=== PATIENT | female | born 1960 | race Caucasian/White ===

== ENCOUNTER 2018-04-10 16:36 | Day surgery (SDC) | payer BC ==
--- NOTE | 2018-04-10 13:08 | P.GSHP ---
History of Present Illness H&P Date: 04/10/18 Chief Complaint: Dysphagia, gastric prolapse This 57-year-old female who has LAP-BAND surgery performed prior 15 years ago. Patient is not been seen for over 5 years. Patient's had a one-month history of progressive dysphagia. Patient presents for bariatric clinic today because she had trouble tolerating water. Her LAP-BAND was empty. Her esophagram shows high-grade obstruction of the lap band site suggestive gastric prolapse. Patient admitted to the hospital for removal of LAP-BAND. Patient's aware the risks of surgery including conversion O procedure and injury to the stomach liver or spleen. She also aware the risk of gastric perforation. Past Medical History Past Medical History: GERD/Reflux, Hypertension History of Any Multi-Drug Resistant Organisms: None Reported Past Surgical History: Adenoidectomy, Bariatric Surgery, Breast Surgery, Tonsillectomy Additional Past Surgical History / Comment(s): hx of breastcancer double mastectomy 2004 panniculectomy lap band 2002 Past Anesthesia/Blood Transfusion Reactions: No Reported Reaction Past Psychological History: No Psychological Hx Reported Smoking Status: Current some day smoker Past Alcohol Use History: None Reported Past Drug Use History: None Reported Medications and Allergies Home Medications Medication Instructions Recorded Confirmed Type Losartan-Hctz 50-12.5 mg [Hyzaar 1 tab PO DAILY 04/10/18 04/10/18 History 50-12.5] Omeprazole 20 mg PO DAILY 04/10/18 04/10/18 History Ondansetron [Zofran] 4 mg PO DIRECTED 04/10/18 04/10/18 History Varenicline [Chantix Continuing 1 mg PO DIRECTED 04/10/18 04/10/18 History Pack] Allergies Allergy/AdvReac Type Severity Reaction Status Date / Time No Known Allergies Allergy Verified 04/10/18 10:24 Surgical - Exam - General well developed, well nourished, moderate distress - Eyes PERRL - ENT normal pinna - Neck no masses - Respiratory normal expansion - Cardiovascular Rhythm: regular - Abdomen Mild epigastric tenderness Abdomen: soft Assessment and Plan Assessment: Acute gastric obstruction secondary to gastric prolapse. Patient will undergo removal of LAP-BAND
--- NOTE | 2018-04-10 16:12 | P.OP ---
Date of Procedure: 04/10/18 Preoperative Diagnosis: Gastric prolapse Dysphagia Postoperative Diagnosis: Gastric prolapse Dysphagia Procedure(s) Performed: Laparoscopic lysis of adhesions Labs Removal of LAP-BAND system Anesthesia: DIDIER Surgeon: Rogerio Connors Estimated Blood Loss (ml): 5 Pathology: other (LAP-BAND device) Condition: stable Disposition: PACU Description of Procedure: The patient's placed on the operative table in the supine position. She received general anesthesia. She was then placed in dorsal 5 position. Her abdomen was prepped and draped in the usual sterile fashion. The skin incision sites were anesthetized 1% local Xylocaine. Using a 11 blade the skin was incised the port site. Using blunt and sharp dissection with cautery the LAP- BAND port was dissected free from subcutaneous tissues. The PEG tube was then cut LAP-BAND port was removed. Next using a 5 mm optical trocar under direct visualization panel cavity is entered and then the abdomen was insufflated. Next a 5 mm trochars placed in the left upper quadrant an 8 mm trocar was placed in the left epigastric area and then 5 mm trocar is placed in the right lateral and left lateral position. The original 5 mm trocar was exchanged for a 15 mm. The left lateral lobe liver retracted. The LAP-BAND was visualized. There is evidence of a gastric prolapse. There was a large gastric pouch. The adhesions Herberth device were then cut using sharp dissection. The LAP-BAND device was then cut Buckle withdrawn from around stomach. There is no injury to the stomach or esophagus. The LAP-BAND device extracted through the 15 mm trocar site. There were some adhesions to the omentum and these were sharply dissected off the abdominal wall. The trochars withdrawn. The skin was closed interrupted 3-0 Monocryl suture. Dermabond was applied. Patient top she will was sent to recovery in stable condition.
[~2018-04-10 16:36] MED LIST changes: +BUPIVACAIN-EPI 0.5%-1:200,000 30 ML VIAL SQ ONE; +GLYCOPYRROLATE 0.2 MG/ML 2 ML VIAL ONE; +HEPARIN SODIUM,PORCINE 5,000 UNIT/ML 1 ML VIAL SQ ONE; +HYDROcodone/APAP 5-325MG 1 EACH TAB PO PRN; +HYDROmorphone 1 MG/ML 1 ML SYRINGE IVP PRN; +IV FLUID CONTINUATION 1,000 ML IV ONE; +KETOROLAC 30 MG/ML 1 ML VIAL ONE; +LACTATED RINGERS 1,000 ML IV ONE; -LACTATED RINGERS 1,000 ML IV SCH; +LIDOCAINE 1% INJ 10MG/ML (20 ML MDV) ONE; +MEPERIDINE 50 MG/ML SYRINGE ONE; +MIDAZOLAM 2 MG/2 ML VIAL ONE; +NALOXONE 0.4 MG/ML 1 ML VIAL IV PRN; +NEOSTIGMINE 1 MG/ML 10 ML VIAL ONE; +ONDANSETRON 4 MG/2 ML VIAL IVP PRN; +PROPOFOL 10 MG/ML 20 ML VIAL IV ONE; +ROCURONIUM BROMIDE 10 MG/ML 10 ML VIAL IV ONE; +ceFAZolin 2,000 MG in DEXTROSE/WATER 1 50ML.BAG IVPB STA; +ceFAZolin IN SWFI 2 GM/20 ML SYRINGE IVP STA; +fentaNYL (PF) 50 MCG/ML 2 ML AMP ONE
[2018-04-10 18:12] VITALS: BMI 31.3
[2018-04-10] MEDS: KETOROLAC 30 MG/ML 1 ML VIAL IVP SCH ×2 (20:09→23:36)
[2018-04-11] MEDS: KETOROLAC 30 MG/ML 1 ML VIAL IVP SCH ×2 (05:02→12:47)
[2018-04-11 07:23] VITALS: BP 113/64; PULSE 55; RESP 18; TEMP 98.4
[2018-04-11] MEDS ORDERED: ENOXAPARIN 40 MG/0.4 ML SYRINGE SQ SCH (09:00)
--- NOTE | 2018-04-11 10:25 | FL ---
EXAMINATION TYPE: FL UGI w esophagus DATE OF EXAM: 04/11/2018 COMPARISON: Previous dated 08/22/2010 HISTORY: Status post lap band removal TECHNIQUE: A single/double contrast UGI study is performed. FINDINGS: Limited exam was performed. 39 seconds fluoroscopy time. 6 intraoperative images. Patient was given 50 cc Omnipaque 300 orally. There is no obstruction to flow. No extravasation. Post op changes noted in the upper abdomen. Minimal pneumoperitoneum noted incidentally. IMPRESSION: Post lap band removal. No evident complication.
--- NOTE | 2018-04-11 12:15 | P.DS ---
Providers Expected date of discharge: 04/11/18 Attending physician: Rogerio Connors Consults: 04/10/18 16:04 Consult Physician Routine Consulting Provider: Raffi White Consult Reason/Comments: Medical management Do you want consulting provider notified?: Yes Primary care physician: Geraldine Thakur [facility] Course: This is a 57-year-old female who presented on elective basis to have a lap band to be removed. Patient has a LAP-BAND surgery done about 15 years prior. Patient has not been seen in follow-up for 5 years. Patient gives a history of experiencing for the past month progressive dysphagia. She presented to the bariatric clinic because she was having trouble tolerating water. The LAP-BAND was empty. Esophagram showed high-grade obstruction of the LAP-BAND site suggested of gastric prolapse patient underwent April 10 LAP-BAND system removal with laparoscopic lysis of adhesions for gastric prolapse postop there were no new events patient was tolerating a diet esophagram was negative patient was anxious to be discharged home analgesics effective for pain control surgical dressing sites were dry abdomen soft nondistended. Discharge diagnoses Removal of LAP-BAND system with lysis of adhesions for gastric prolapse LAP-BAND surgery performed 15 years prior One-month history of progressive dysphagia or difficulty swallowing Esophagram showed high-grade obstruction of the LAP-BAND site suggestive of gastric prolapse The above impression and plan of care have been discussed and directed by signing physician. Azul Castanon nurse practitioner acting as scribe for signing physician. Plan - Discharge Summary Discharge Rx Participant: No New Discharge Prescriptions: New HYDROcodone/APAP 5-325MG [Chemult 5-325] 1 each PO Q6HR PRN #12 tab PRN Reason: Moderate To Severe Pain Continue Omeprazole 20 mg PO DAILY Ondansetron [Zofran] 4 mg PO DIRECTED Losartan-Hctz 50-12.5 mg [Hyzaar 50-12.5] 1 tab PO DAILY Varenicline [Chantix Continuing Pack] 1 mg PO DIRECTED Discharge Medication List Losartan-Hctz 50-12.5 mg [Hyzaar 50-12.5] 1 tab PO DAILY 04/10/18 [History] Omeprazole 20 mg PO DAILY 04/10/18 [History] Ondansetron [Zofran] 4 mg PO DIRECTED 04/10/18 [History] Varenicline [Chantix Continuing Pack] 1 mg PO DIRECTED 04/10/18 [History] HYDROcodone/APAP 5-325MG [Chemult 5-325] 1 each PO Q6HR PRN #12 tab 04/11/18 [Rx] Follow up Appointment(s)/Referral(s): Rogerio Connors MD [STAFF PHYSICIAN] - 1 Week Activity/Diet/Wound Care/Special Instructions: No tub bath for six weeks. Shower daily. No lifting over 10 pounds for the next 4 weeks. [id number]-pfvedow stool softeners for constipation if needed May use ice packs to surgical site. No driving while taking narcotic for pain. Discharge Disposition: HOME SELF-CARE
== END 2018-04-11 14:08 | disposition home or self-care (01) ==
LOC: 3SUR 16:36 → OR 16:36
PROVIDERS: ATTEND Surgery
DX: T85.898A Other specified complication of other internal prosthetic devices, implants and grafts, initial encounter (principal); K66.0 Peritoneal adhesions (postprocedural) (postinfection); K21.9 Gastro-esophageal reflux disease without esophagitis; I10 Essential (primary) hypertension; Z90.13 Acquired absence of bilateral breasts and nipples; F17.200 Nicotine dependence, unspecified, uncomplicated; Z79.899 Other long term (current) drug therapy
CPT/HCPCS: 74240; 43774; J1644; J1650; J1885 ×2; J0690; Q9967; 36415; 80053; 85025; 96360

== ENCOUNTER → 2018-04-10 | Outpatient (CLI) | payer BC ==
[2018-04-10 10:29] VITALS: BP 104/69; PULSE 76; TEMP 98.2; BMI 31.8
--- NOTE | 2018-04-10 11:54 | P.BASOAP ---
Subjective Progress Note Date: 04/10/18 Principal diagnosis: Dysphagia, vomiting 49-year-old female had an outpatient upper GI ordered by her primary care physician. Patient has a history of laparoscopic banding in 2006. Over the last 3 weeks she has had progressive dysphasia nausea vomiting and epigastric pain. Pain is only when she eats. Today's upper GI shows significant obstruction with prolapse changes. Patient was seen in the bariatric clinic. Apparently she saw me at the time of her last visit. Her band was emptied for 1 mL. Patient still has dysphagia symptoms. She describes dark-colored urine. She feels quite dehydrated. Objective - Vital Signs Vital signs: Vital Signs Temp 98.2 F 04/10/18 10:26 Pulse 76 04/10/18 10:26 Resp BP 104/69 04/10/18 10:26 Pulse Ox Intake & Output 04/09/18 04/10/18 04/10/18 18:59 06:59 18:59 Weight 92.079 kg - Exam Abdomen: Soft, nontender, nondistended Assessment/Plan (1) Gastric prolapse Narrative/Plan: Options discussed with the patient. Recommend laparoscopic band removal at this time. The patient's lap band port was palpated. The site was aseptically prepped. The Hardy needle was advanced into the port. Aspiration took place. A total of 1ml of fluid was evacuated. Pressure was held and a sterile dressing was applied. Plan: Date: 04/10/18 Initial Weight: Initial BMI: Current Weight: 92.079 kg Current BMI: 31.8 Type of Surgery: Total Volume in Band: Previous Volume: Volume Removed: Volume Added: Band Size:
== END | disposition home or self-care (01) ==
LOC: BARWHC3 09:55
PROVIDERS: ATTEND Surgery
DX: K31.89 Other diseases of stomach and duodenum (principal); R47.02 Dysphasia; Z98.890 Other specified postprocedural states
CPT/HCPCS: 99212

== ENCOUNTER → 2018-04-10 | Outpatient (CLI) | payer BC ==
--- NOTE | 2018-04-10 10:49 | FL ---
EXAMINATION TYPE: FL UGI air w esophagus DATE OF EXAM: 04/10/2018 COMPARISON: 07/07/2010 and 08/22/2010 HISTORY: 57-year-old female GERD, unable to keep food or liquids down for the left 3 weeks. TECHNIQUE: A single contrast esophagram and UGI study is performed. Total fluoroscopy time: 1 minute 19 seconds. Total images: 15. FINDINGS: Surgical Supply Assistant image of the abdomen shows slight horizontal orientation of the patient's lap band, similar to the 07/07/2010 study. This is a change as compared to 08/22/2010. The esophagus shows normal motility. There is a relatively severe obstruction at the level of the patient's lap band. Patient ingested onl y 2 ounces of thin barium. Repeated to and fro flow is demonstrated with a intermittent esophageal di latation and contrast pooling up to the upper third thoracic level. On the 10 minute post procedure radiograph, there has been some passage of contrast into the stomach but a prominent contrast column remains in the esophagus. IMPRESSION: 1. Slight horizontal orientation of the lap band which is a change compared to 08/22/2010. 2. Relatively severe obstruction at the level of the lap band. Given this finding in combination with the altered orientation, findings are suspicious for lap band prolapse. 3. On the 10 minute post procedure radiograph, some contrast has passed into the stomach but a promin ent contrast column remains in the esophagus. Only 2 ounces of contrast were ingested. The technologist will contact the bariatric clinic.
== END | disposition home or self-care (01) ==
LOC: RADFLWHC 08:50
PROVIDERS: ATTEND Internal Medicine
DX: K21.9 Gastro-esophageal reflux disease without esophagitis (principal)
CPT/HCPCS: 74246

== ENCOUNTER → 2018-04-10 | Outpatient (CLI) | payer BC ==
[~2018-04-10] MED LIST: LACTATED RINGERS 1,000 ML IV SCH
[2018-04-10 13:05] LABS: Basophils % (A) 1 %; Eosinophils # (A) 0.2 k/uL (0-0.7); Eosinophils % (A) 3 %; HCT 43.7 % (34.0-46.0); HGB 14.3 gm/dL (11.4-16.0); Lymphocytes # (A) 1.9 k/uL (1.0-4.8); Lymphocytes % (A) 35 %; MCH 31.7 pg (25.0-35.0); MCHC 32.8 g/dL (31.0-37.0); MCV 96.7 fL (80.0-100.0); Monocytes # (A) 0.3 k/uL (0-1.0); Monocytes % (A) 5 %; Neutrophils % (A) 54 %; Platelet Count 286 k/uL (150-450); RBC 4.52 m/uL (3.80-5.40); RDW 13.6 % (11.5-15.5); WBC 5.5 k/uL (3.8-10.6)
[2018-04-10 13:16] LABS: Albumin 4.3 g/dL (3.5-5.0); Calcium 10.3 mg/dL (8.4-10.2); Potassium 3.9 mmol/L (3.5-5.1); Total Bilirubin 0.3 mg/dL (0.2-1.3); Total Protein 7.3 g/dL (6.3-8.2)
[2018-04-10 13:22] VITALS: BP 104/69; PULSE 76; RESP 16; TEMP 98.2
== END ==
LOC: PROCWHC3 12:17
PROVIDERS: ATTEND Surgery
DX: E86.0 Dehydration (principal)
CPT/HCPCS: 36415; 80053; 85025; 96360

== ENCOUNTER → 2018-04-15 | Outpatient (CLI) | payer BC ==
[2018-04-15 14:11] VITALS: BP 142/99; PULSE 73; RESP 16; TEMP 98.5; BMI 33.5
--- NOTE | 2018-04-16 12:28 | P.HPBAR ---
Bariatric H&P - History & Physicial H&P Date: 04/15/18 History & Physicial: Visit/CC: removal of lap band follow-up Patient initial contact: Initial weight: 92.079 kg Initial weight in pounds: 203.00 Height: 5 ft 7 in Initial BMI: 31.8 Last weight: Current weight: 97.069 kg Current weight in pounds: 214.00 Current BMI: 33.5 [place] body weight (based on NIH guidelines): 61.235 kg Excess body weight loss: The patient is a 57 year-old F who presents for Bariatric Assessment. Patient presents today for follow-up. She had her LAP-BAND removed last week. She has had no further dysphagia. She has gained 12 pounds since her band was removed. Past Medical History Past Medical History: GERD/Reflux, Hypertension History of Any Multi-Drug Resistant Organisms: None Reported Past Surgical History: Adenoidectomy, Bariatric Surgery, Breast Surgery, Tonsillectomy Additional Past Surgical History / Comment(s): hx of breastcancer double mastectomy 2003 panniculectomy lap band 2002-(band removed 04/10/18) Past Anesthesia/Blood Transfusion Reactions: No Reported Reaction Past Psychological History: No Psychological Hx Reported Smoking Status: Current every day smoker Past Alcohol Use History: None Reported Past Drug Use History: None Reported Surgical - Exam Vital Signs Temp Pulse Resp BP 98.5 F 73 16 142/99 04/15/18 14:09 04/15/18 14:09 04/15/18 14:09 04/15/18 14:09 - General well developed, well nourished, no distress - Eyes PERRL - ENT normal pinna - Neck no masses - Respiratory normal expansion - Cardiovascular Rhythm: regular - Abdomen Abdomen: soft, non tender Bariatric Assessment & Plan Plan: Status post removal LAP-BAND. Patient's dysphagia has resolved. She'll follow- up in 8 weeks. Bariatric Checklist Checklist: Plan: Checklist: EGD: 1. Hiatal hernia: 2. H. Pylori: HgbA1c: Vitamin D: Smoking: Current every day smoker Primary care physician referral: DR. LEBDETTER Psychiatry clearance: Cardiology clearance: Sleep study: Diet journal: VTE risk score: VTE risk level: Rehab needs at discharge:
== END | disposition home or self-care (01) ==
LOC: BARWHC3 13:44
PROVIDERS: ATTEND Surgery
DX: Z48.815 Encounter for surgical aftercare following surgery on the digestive system (principal); F17.200 Nicotine dependence, unspecified, uncomplicated; Z98.84 Bariatric surgery status; Z90.89 Acquired absence of other organs
CPT/HCPCS: 99211

== ENCOUNTER 2018-06-07 08:26 | Day surgery (SDC) | payer BC ==
[2018-06-05 16:37] VITALS: BMI 32.8
[~2018-06-07 08:26] MED LIST changes: -BUPIVACAIN-EPI 0.5%-1:200,000 30 ML VIAL SQ ONE; -GLYCOPYRROLATE 0.2 MG/ML 2 ML VIAL ONE; -HEPARIN SODIUM,PORCINE 5,000 UNIT/ML 1 ML VIAL SQ ONE; -HYDROcodone/APAP 5-325MG 1 EACH TAB PO PRN; -HYDROmorphone 1 MG/ML 1 ML SYRINGE IVP PRN; -IV FLUID CONTINUATION 1,000 ML IV ONE; -KETOROLAC 30 MG/ML 1 ML VIAL ONE; -LACTATED RINGERS 1,000 ML IV ONE; +LACTATED RINGERS 1,000 ML IV SCH; -LIDOCAINE 1% INJ 10MG/ML (20 ML MDV) ONE; -MEPERIDINE 50 MG/ML SYRINGE ONE; -MIDAZOLAM 2 MG/2 ML VIAL ONE; -NALOXONE 0.4 MG/ML 1 ML VIAL IV PRN; -NEOSTIGMINE 1 MG/ML 10 ML VIAL ONE; -ONDANSETRON 4 MG/2 ML VIAL IVP PRN; -PROPOFOL 10 MG/ML 20 ML VIAL IV ONE; -ROCURONIUM BROMIDE 10 MG/ML 10 ML VIAL IV ONE; -ceFAZolin 2,000 MG in DEXTROSE/WATER 1 50ML.BAG IVPB STA; -ceFAZolin IN SWFI 2 GM/20 ML SYRINGE IVP STA; -fentaNYL (PF) 50 MCG/ML 2 ML AMP ONE
[2018-06-07 09:00] VITALS: RESP 16; TEMP 98.1
[2018-06-07] MEDS ORDERED: PROPOFOL 10 MG/ML 20 ML VIAL IV ONE (09:58)
[2018-06-07] MEDS ORDERED: LIDOCAINE 1% INJ 10MG/ML (20 ML MDV) ONE (09:58)
--- NOTE | 2018-06-07 10:17 | P.GSHP ---
History of Present Illness H&P Date: 06/07/18 Chief Complaint: Dysphagia This a 49-year-old female who's has some issues with dysphagia. Patient appears history of LAP-BAND surgery and then removal of LAP-BAND. Past Medical History Past Medical History: Cancer, GERD/Reflux, Hypertension, Osteoarthritis (OA) Additional Past Medical History / Comment(s): ENVIRONMENTAL ALLERGIES, HX BRONCHITIS, BREAST CANCER WITH SURGERY & CHEMO (2003).,ARTHRITIS WITH BACK & KNEE PAIN., HX OF LAP BAND (2002) ,GASTRIC PROLAPSE AND BAND REMOVED 04/10/18., HX OF GERD WHICH RESOLVED WHEN LAP BAND WAS REMOVED. History of Any Multi-Drug Resistant Organisms: None Reported Past Surgical History: Adenoidectomy, Bariatric Surgery, Breast Surgery, Tonsillectomy Additional Past Surgical History / Comment(s): hx of breast cancer double mastectomy (2003) , breast reconstruction surgeries., panniculectomy., Cyst on hand removed., lap band 2002-(band removed 04/10/18) Past Anesthesia/Blood Transfusion Reactions: No Reported Reaction Past Psychological History: No Psychological Hx Reported Smoking Status: Heavy tobacco smoker Past Alcohol Use History: Occasional Additional Past Alcohol Use History / Comment(s): SMOKES 1 PPD OR LESS, SMOKING OFF AND ON, SMOKED APPROX 30 YEARS. Past Drug Use History: None Reported - Past Family History Father Family Medical History: Diabetes Mellitus Medications and Allergies Home Medications Medication Instructions Recorded Confirmed Type Varenicline [Chantix Continuing 1 mg PO DIRECTED 04/10/18 06/07/18 History Pack] Acetaminophen [Tylenol Extra 1,000 mg PO DAILY PRN 06/05/18 06/07/18 History Strength] Guaifen/Phenyleph/Acetaminophn 1 each PO DAILY PRN 06/05/18 06/07/18 History [Tylenol Sinus Severe Caplet] Metoprolol Wright/Hydrochlorothiaz 1 each PO DIRECTED 06/05/18 06/07/18 History [Dutoprol 50-12.5 mg Tablet] Allergies Allergy/AdvReac Type Severity Reaction Status Date / Time No Known Allergies Allergy Verified 06/05/18 15:49 Surgical - Exam Vital Signs Temp Pulse Resp BP Pulse Ox 98.1 F 84 16 140/86 98 06/07/18 08:59 06/07/18 08:59 06/07/18 08:59 06/07/18 08:59 06/07/18 08:59 - General well developed, no distress - Eyes PERRL - ENT normal pinna - Neck no masses - Respiratory normal expansion - Cardiovascular Rhythm: regular - Abdomen Abdomen: soft, non tender Assessment and Plan Assessment: Dysphagia. We'll perform EGD.
--- NOTE | 2018-06-07 10:30 | P.OP ---
Date of Procedure: 06/07/18 Preoperative Diagnosis: Dysphagia Postoperative Diagnosis: Antral gastritis Procedure(s) Performed: EGD Anesthesia: MAC Surgeon: Jeremy Castellano Pathology: other (Antrum) Condition: stable Disposition: PACU Description of Procedure: The patient's placed on the endoscopy table in the lateral position. She received IV sedation. The gastroscope placed oropharynx and passed in the esophagus and into the stomach. Scope was then placed through the pylorus. The first and second portion of the duodenum appeared normal. Scope was then brought back the antrum and this appeared moderately inflamed. A biopsies performed. The scope was then brought back into the body of stomach this appeared normal. Scope was unretroflexed and remainder the stomach appeared normal. The GE junction was at 40 centimeters. The distal esophagus appeared normal. Scope was withdrawn for patient.
[2018-06-07 10:53] VITALS: BP 156/98; PULSE 81
== END 2018-06-07 11:05 | disposition home or self-care (01) ==
LOC: ORWHC2ENDO 08:26
PROVIDERS: ATTEND Surgery
DX: K29.70 Gastritis, unspecified, without bleeding (principal); K29.80 Duodenitis without bleeding; I10 Essential (primary) hypertension; M19.90 Unspecified osteoarthritis, unspecified site; M54.9 Dorsalgia, unspecified; M25.569 Pain in unspecified knee; K21.9 Gastro-esophageal reflux disease without esophagitis; F17.210 Nicotine dependence, cigarettes, uncomplicated; Z79.899 Other long term (current) drug therapy; Z85.3 Personal history of malignant neoplasm of breast; Z92.21 Personal history of antineoplastic chemotherapy; Z90.13 Acquired absence of bilateral breasts and nipples
CPT/HCPCS: 88305; 43239; J2001; J2704

== ENCOUNTER → 2018-06-10 | Outpatient (CLI) | payer BC ==
[2018-06-10 10:00] VITALS: BMI 33.1
[2018-06-10 13:33] VITALS: BP 146/78; PULSE 87; TEMP 98.4
== END | disposition home or self-care (01) ==
LOC: BARWHC3 08:52
PROVIDERS: ATTEND Surgery
DX: E66.01 Morbid (severe) obesity due to excess calories (principal)
CPT/HCPCS: 97804; 99211

== ENCOUNTER → 2018-06-10 | Outpatient (CLI) | payer BC ==
--- NOTE | 2018-06-10 14:10 | P.HPBAR ---
Bariatric H&P - History & Physicial H&P Date: 06/10/18 History & Physicial: Visit/CC: Patient initial contact: Initial weight: 92.079 kg Initial weight in pounds: Height: Initial BMI: Last weight: Current weight: Current weight in pounds: Current BMI: [place] body weight (based on NIH guidelines): Excess body weight loss: The patient is a 57 year-old F who presents for Bariatric Assessment. Patient presents today for its sleeve gastrectomy presurgical consultation. She fairly scheduled for surgery sometime this month. We will over the risks and benefits of sleeve gastrectomy again. Past Medical History Past Medical History: Cancer, GERD/Reflux, Hypertension, Osteoarthritis (OA) Additional Past Medical History / Comment(s): ENVIRONMENTAL ALLERGIES, HX BRONCHITIS, BREAST CANCER WITH SURGERY & CHEMO (2003).,ARTHRITIS WITH BACK & KNEE PAIN., HX OF LAP BAND (2002) ,GASTRIC PROLAPSE AND BAND REMOVED 04/10/18., HX OF GERD WHICH RESOLVED WHEN LAP BAND WAS REMOVED. History of Any Multi-Drug Resistant Organisms: None Reported Past Surgical History: Adenoidectomy, Bariatric Surgery, Breast Surgery, Tonsillectomy Additional Past Surgical History / Comment(s): hx of breast cancer double mastectomy (2003) , breast reconstruction surgeries., panniculectomy., Cyst on hand removed., lap band 2002-(band removed 04/10/18) Past Anesthesia/Blood Transfusion Reactions: No Reported Reaction Smoking Status: Heavy tobacco smoker - Past Family History Father Family Medical History: Diabetes Mellitus Surgical - Exam - General well developed, no distress - Eyes PERRL - ENT normal pinna, normal nares - Neck no masses - Abdomen Abdomen: soft, non tender Bariatric Assessment & Plan Plan: History of previous LAP-BAND surgery. Patient's had weight gain. Patient be scheduled for sleeve gastrectomy once insurance authorization is complete. Bariatric Checklist Checklist: Plan: Checklist: EGD: 1. Hiatal hernia: 2. H. Pylori: HgbA1c: Vitamin D: Smoking: Heavy tobacco smoker Primary care physician referral: DR. LEDBETTER Psychiatry clearance: Cardiology clearance: Sleep study: Diet journal: VTE risk score: VTE risk level: Rehab needs at discharge:
[2018-06-10 14:32] LABS: Basophils % (A) 1 %; Eosinophils # (A) 0.3 k/uL (0-0.7); Eosinophils % (A) 4 %; HCT 47.3 % (34.0-46.0); HGB 15.1 gm/dL (11.4-16.0); Lymphocytes # (A) 2.5 k/uL (1.0-4.8); Lymphocytes % (A) 34 %; MCH 31.5 pg (25.0-35.0); MCHC 31.9 g/dL (31.0-37.0); MCV 98.8 fL (80.0-100.0); Mean Platelet Volume 6.4; Monocytes # (A) 0.4 k/uL (0-1.0); Monocytes % (A) 6 %; Neutrophils % (A) 54 %; Platelet Count 289 k/uL (150-450); RBC 4.79 m/uL (3.80-5.40); RDW 14.8 % (11.5-15.5); WBC 7.4 k/uL (3.8-10.6)
[2018-06-10 14:42] LABS: ALT 18 U/L (9-52); AST 21 U/L (14-36); Albumin 4.2 g/dL (3.5-5.0); Alkaline Phosphatase 69 U/L (38-126); Anion Gap 9 mmol/L; Blood Urea Nitrogen 15 mg/dL (7-17); Calcium 9.9 mg/dL (8.4-10.2); Carbon Dioxide 25 mmol/L (22-30); Chloride 107 mmol/L (98-107); Glucose 96 mg/dL (74-99); Potassium 3.9 mmol/L (3.5-5.1); Sodium 141 mmol/L (137-145); Total Bilirubin 0.4 mg/dL (0.2-1.3); Total Protein 7.6 g/dL (6.3-8.2)
== END | disposition home or self-care (01) ==
LOC: LABPAT 13:46
PROVIDERS: ATTEND Surgery
DX: Z01.812 Encounter for preprocedural laboratory examination (principal)
CPT/HCPCS: 36415; 80053; 85025; 93005

== ENCOUNTER 2018-06-24 06:32 | Inpatient (IN) | payer BC ==
[2018-06-21 11:42] VITALS: BMI 32.8
[~2018-06-24 06:32] MED LIST changes: +DEXAMETHASONE SOD PHOSPHATE 10 MG/ML 1 ML VIAL IV ONE; -LACTATED RINGERS 1,000 ML IV SCH; +MIDAZOLAM (PF) 2 MG/2 ML VIAL IV PRN; +ONDANSETRON 4 MG/2 ML VIAL IVP ONE; +SCOPOLAMINE 1.5MG/72HR PATCH TRANSDERM ONE; +ceFAZolin IN SWFI 2 GM/20 ML SYRINGE IVP ONE
[2018-06-24] MEDS ORDERED: LACTATED RINGERS 1,000 ML IV ONE ×2 (07:08→09:11)
[2018-06-24] MEDS ORDERED: LIDOCAINE 1% 20 ML VIAL (10MG/ML) FOR IV START INTRADERMA ONE (07:09)
[2018-06-24] MEDS ORDERED: HEPARIN SODIUM,PORCINE 5,000 UNIT/ML 1 ML VIAL SQ ONE (08:26)
--- NOTE | 2018-06-24 08:30 | P.GSHP ---
History of Present Illness H&P Date: 06/24/18 Chief Complaint: Morbid obesity This a 57-year-old female who presents today for laparoscopic sleeve gastrectomy. Patient has a history of morbid obesity. She had a previous prolapse of her LAP-BAND. The band was removed due to the prolapse. Patient had significant weight gain after the band was removed. She presents today for sleeve gastrectomy. Patient's aware the risk of sleeve gastric including bleeding, conversion to the open procedure and injury to the stomach liver spleen. Past Medical History Past Medical History: Cancer, GERD/Reflux, Hypertension, Osteoarthritis (OA) Additional Past Medical History / Comment(s): HX BRONCHITIS, BREAST CANCER WITH SURGERY & CHEMO (2003).,ARTHRITIS WITH BACK & KNEE PAIN., GASTRIC PROLAPSE AND BAND REMOVED 04/10/18., History of Any Multi-Drug Resistant Organisms: None Reported Past Surgical History: Adenoidectomy, Bariatric Surgery, Breast Surgery, Orthopedic Surgery, Tonsillectomy Additional Past Surgical History / Comment(s): carissa mastectomy (2003) , carissa breast reconstruction., panniculectomy., Cyst on rt hand removed., lap band 2002-(band removed 04/10/18), EGD Past Anesthesia/Blood Transfusion Reactions: Family History of Problems w/ Anesthesia Additional Past Anesthesia/Blood Transfusion Reaction / Comment(s): sister PONV Smoking Status: Current every day smoker - Past Family History Father Family Medical History: Diabetes Mellitus Mother Family Medical History: No Reported History Medications and Allergies Home Medications Medication Instructions Recorded Confirmed Type Acetaminophen [Tylenol Extra 1,000 mg PO DAILY PRN 06/05/18 06/21/18 History Strength] Guaifen/Phenyleph/Acetaminophn 1 each PO DAILY PRN 06/05/18 06/21/18 History [Tylenol Sinus Severe Caplet] Metoprolol Wright/Hydrochlorothiaz 1 each PO QAM 06/05/18 06/21/18 History [Dutoprol 50-12.5 mg Tablet] Omeprazole 40 mg PO DAILY #60 capsule. 06/07/18 06/21/18 Rx Allergies Allergy/AdvReac Type Severity Reaction Status Date / Time No Known Allergies Allergy Verified 06/21/18 11:33 Surgical - Exam Vital Signs Temp Pulse Resp BP Pulse Ox 97.8 F 87 18 131/84 98 06/24/18 06:56 06/24/18 06:56 06/24/18 06:56 06/24/18 06:56 06/24/18 06:56 - General well developed, well nourished, no distress - Eyes PERRL - ENT normal pinna - Neck no masses - Respiratory normal expansion - Cardiovascular Rhythm: regular - Abdomen Abdomen: soft, non tender Assessment and Plan Assessment: History of gastric prolapse with removal LAP-BAND We'll perform laparoscopic sleeve gastrectomy
[2018-06-24] MEDS ORDERED: BUPIVACAIN-EPI 0.25%-1:200,000 30 ML VIAL SQ ONE ×2 (08:32→09:05)
[2018-06-24] MEDS ORDERED: LIDOCAINE 1% INJ 10MG/ML (20 ML MDV) ONE (08:36)
[2018-06-24] MEDS ORDERED: GLYCOPYRROLATE 0.2 MG/ML 2 ML VIAL ONE (08:36)
[2018-06-24] MEDS ORDERED: SUCCINYLCHOLINE CHLORIDE 100 MG/5 ML SYR IV ONE (08:36)
[2018-06-24] MEDS ORDERED: MIDAZOLAM 2 MG/2 ML VIAL ONE (08:36)
[2018-06-24] MEDS ORDERED: HYDROmorphone (PF) 1 MG/ML ONE (08:36)
[2018-06-24] MEDS ORDERED: fentaNYL (PF) 50 MCG/ML 2 ML AMP ONE (08:36)
[2018-06-24] MEDS ORDERED: PROPOFOL 10 MG/ML 20 ML VIAL IV ONE (08:36)
[2018-06-24] MEDS ORDERED: NEOSTIGMINE 1 MG/ML 10 ML VIAL ONE (08:36)
[2018-06-24] MEDS ORDERED: ROCURONIUM BROMIDE 10 MG/ML 10 ML VIAL IV ONE (08:36)
[2018-06-24] MEDS ORDERED: ONDANSETRON 4 MG/2 ML VIAL IVP PRN (10:34)
[2018-06-24] MEDS ORDERED: HYDROcodone/APAP 15 ML SOLUTION PO PRN (10:34)
[2018-06-24] MEDS ORDERED: diphenhydrAMINE 50 MG/ML 1 ML VIAL IVP PRN (10:34)
[2018-06-24] MEDS ORDERED: NALOXONE 0.4 MG/ML 1 ML VIAL IV PRN (10:34)
[2018-06-24] MEDS ORDERED: ONDANSETRON 4 MG/2 ML VIAL IVP ONE (10:35)
--- NOTE | 2018-06-24 10:39 | P.OP ---
Date of Procedure: 06/24/18 Preoperative Diagnosis: History of gastric prolapse Morbid obesity Postoperative Diagnosis: History of gastric prolapse Morbid obesity Procedure(s) Performed: Laparoscopic sleeve gastrectomy Lysis of adhesions Anesthesia: DIDIER Surgeon: Rogerio Connors Estimated Blood Loss (ml): 20 Pathology: none sent Condition: stable Disposition: PACU Description of Procedure: The patient was placed on the operating room table in the supine position. She received general anesthesia and then was placed in dorsal lithotomy position. Her abdomen was prepped and draped in sterile fashion. The skin incision sites were anesthetized 1% local Xylocaine. And then the skin was incised with an 11 blade in the left lateral position. Using a blade less trocar under direct visualization the peritoneal cavity was entered. The abdomen was insufflated and then a 5 mm laparoscope was placed into the peritoneal cavity. A 5 mm trocar was placed in the right epigastric, and right lateral position. A 15 mm trocar was placed in the supra-umbilical position and another 5 mm trocar was placed in the left lateral position. The left lateral lobe of the liver was retracted. The stomach was visualized. There were adhesions to the stomach which were lysed with sharp dissection. Prostate 15 minutes was used to lyse adhesions. The previous anterior gastric plication for the LAP-BAND was taken down sharp dissection. Care was taken to identify and preserve the gastric wall. The greater curvature of the stomach was then dissected using the Harmonic scissors. The dissection occurred approximately 5 cm from the pylorus to the level of the left jesus. There was no hiatal hernia seen. At this point a 40- Malay bougie dilator was placed the oropharynx and passed into the esophagus and into the stomach by the FRONT OFFICE ADMINISTRATOR. The sleeve gastrectomy was performed by using the powered echelon stapler with a seam guard buttress material. Sequential firings of the stapler were performed. The gastric remnant was then brought out through the 15 mm trocar site. The dilator was withdrawn. And a orogastric tube was replaced into the stomach. The stomach was insufflated with 200 mL of methylene blue normal saline. There was no evidence of extravasation. The abdomen was irrigated there is no bleeding seen. The Angus -Liyah device was used to close the 15 mm trocar with 0 Vicryl. Skin was closed with interrupted 3-0 Monocryl sutures once the trochars withdrawn. Dermabond dressing was applied. Patient was sent to recovery in stable condition.
[2018-06-24] MEDS: HYDROmorphone 1 MG/ML 1 ML SYRINGE IVP PRN ×5 (10:44→22:01)
[2018-06-24] MEDS ORDERED: diphenhydrAMINE 50 MG/ML 1 ML VIAL IVP ONE (11:00)
[2018-06-24] MEDS ORDERED: METOCLOPRAMIDE 5 MG/ML 2 ML VIAL IVP ONE (11:13)
[2018-06-24] MEDS: SIMETHICONE 40 MG/0.6 ML DROPS 2,000 MG/30 ML BOTTLE PO PRN ×2 (11:41→17:32)
[2018-06-24] MEDS: 0.9% NACL WITH KCL 20 MEQ/L 1,000 ML IV SCH ×2 (11:43→17:33)
[2018-06-24] MEDS: AMPICILLIN-SULBACTAM 3 GM in SODIUM CHLORIDE 0.9% 100 ML IVPB SCH ×2 (11:45→17:33)
[2018-06-24] MEDS: ALBUTEROL NEBULIZED 2.5 MG/3 ML INHALATION SCH ×3 (12:16→18:55)
[2018-06-24] MEDS: LACTATED RINGERS 1,000 ML IV SCH (15:44)
[2018-06-24] MEDS: KETOROLAC 30 MG/ML 1 ML VIAL IVP SCH ×2 (15:48→17:35)
[2018-06-24] MEDS ORDERED: IPRATROPIUM-ALBUTEROL 3 ML NEB INHALATION PRN (19:20)
[2018-06-24] MEDS: IPRATROPIUM-ALBUTEROL 3 ML NEB INHALATION SCH (19:56)
[2018-06-24 20:21] LABS: ALT 75 U/L (9-52); AST 104 U/L (14-36); Albumin 3.9 g/dL (3.5-5.0); Alkaline Phosphatase 54 U/L (38-126); Anion Gap 8 mmol/L; Blood Urea Nitrogen 17 mg/dL (7-17); Calcium 9.1 mg/dL (8.4-10.2); Carbon Dioxide 25 mmol/L (22-30); Chloride 104 mmol/L (98-107); Glucose 97 mg/dL (74-99); Potassium 4.3 mmol/L (3.5-5.1); Sodium 137 mmol/L (137-145); Total Bilirubin 0.3 mg/dL (0.2-1.3); Total Protein 6.9 g/dL (6.3-8.2)
[2018-06-24] MEDS: ENOXAPARIN 40 MG/0.4 ML SYRINGE SQ SCH (22:01)
[2018-06-24] MEDS: FAMOTIDINE 20 MG TAB PO SCH (22:01)
--- NOTE | 2018-06-24 22:19 | CONS ---
CONSULTATION REASON FOR CONSULTATION: Advice regarding GERD, hypertension and other medical issues requested by Dr. Connors. HISTORY OF PRESENT ILLNESS: This 57-year-old woman with past medical history of GERD, hypertension, DJD, history of bronchitis, history of breast cancer, being followed by Dr. Chandler in the outpatient setting underwent laparoscopic sleeve gastrectomy for gastric prolapse and morbid obesity by Dr. Connors. There is no history of fever, rigors. No history of headache, loss of consciousness or seizures. The patient has some cough at this time. PAST MEDICAL HISTORY: History of GERD, hypertension, DJD, history of bariatric surgery, adenoidectomy. MEDICATIONS: Home medications are reviewed and include: 1. Omeprazole 40 mg daily. 2. Metoprolol. 3. Hydrochlorothiazide 1 tablet p.o. q.a.m. 4. Guaifenesin. 5. Tylenol 1000 mg daily p.r.n. ALLERGIES: None. FAMILY HISTORY: No history of heart disease or strokes in the family. SOCIAL HISTORY: History of smoking. Occasional alcohol intake. REVIEW OF SYSTEMS: ENT: No diminished vision or hearing. CARDIOVASCULAR: As mentioned earlier. RESPIRATORY: As mentioned earlier. GI: As mentioned earlier. : No dysuria. NERVOUS SYSTEM: No numbness or weakness. ALLERGY/IMMUNOLOGY: As mentioned earlier. MUSCULOSKELETAL: As mentioned earlier. HEMATOLOGY/ONCOLOGY: No history of anemia. ENDOCRINE: No history of diabetes or hypothyroidism. CONSTITUTIONAL: As mentioned earlier. DERMATOLOGY: Negative. RHEUMATOLOGY: Negative. PSYCHIATRIC: As mentioned earlier. PHYSICAL EXAMINATION: GENERAL: The patient is alert and oriented times three. VITAL SIGNS: Pulse 98, blood pressure 160/90, respirations 16, temperature is normal. Pulse ox 93% on room air. HEENT: Conjunctivae normal. Oral mucosa moist. NECK is no jugular venous distention. No carotid bruit. No lymph node enlargement. CARDIOVASCULAR: S1, S2 muffled. RESPIRATORY: Breath sounds diminished in the bases. A few scattered rhonchi and crackles. ABDOMEN: Soft, status post surgery. Legs are no edema. CENTRAL NERVOUS SYSTEM: No focal deficits. LABS: CBC, BMP, CMP noted within normal limits. ASSESSMENT: 1. Status post laparoscopic sleeve gastrectomy for gastric collapse and morbid obesity. 2. History of gastroesophageal reflux disease. 3. Hypertension. 4. History of degenerative joint disease. 5. History of bronchitis. 6. History of breast cancer. 7. History of adenoidectomy. 8. History of bariatric surgery. 9. History of nicotine dependence. RECOMMENDATIONS AND DISCUSSION: In this 57-year-old female who presented with multiple complex medical issues, we will monitor the patient closely, continue the current medications, management and symptomatic treatment. We will initiate bronchodilators. I would also recommend bronchodilators and resume the home medications. We will follow the patient closely. DVT prophylaxis. The patient may be asked to follow up with the primary care physician in the outpatient setting. Thank you Dr. Connors for letting us participate in the care of this patient. MMODL / IJN: [id number] /
[2018-06-25] MEDS: KETOROLAC 30 MG/ML 1 ML VIAL IVP SCH ×4 (00:25→17:22)
[2018-06-25] MEDS: 0.9% NACL WITH KCL 20 MEQ/L 1,000 ML IV SCH ×2 (00:59→07:33)
[2018-06-25] MEDS: ENOXAPARIN 40 MG/0.4 ML SYRINGE SQ SCH ×2 (07:34→20:27)
[2018-06-25] MEDS: PANTOPRAZOLE 40 MG/10 ML VIAL IV SCH (07:35)
[2018-06-25] MEDS: FAMOTIDINE 20 MG TAB PO SCH ×2 (07:35→20:27)
[2018-06-25] MEDS: METOPROLOL TARTRATE 50 MG TAB PO SCH (07:35)
[2018-06-25] MEDS: IPRATROPIUM-ALBUTEROL 3 ML NEB INHALATION SCH ×3 (08:36→20:35)
[2018-06-25] MEDS: HYDROmorphone 1 MG/ML 1 ML SYRINGE IVP PRN ×4 (09:17→20:27)
[2018-06-25] MEDS: LACTATED RINGERS 1,000 ML IV SCH (09:39)
--- NOTE | 2018-06-25 10:01 | FL ---
EXAMINATION TYPE: FL UGI DATE OF EXAM: 06/25/2018 LIMITED UGI: CLINICAL HISTORY: Previously prolapsed lap band, surgically removed with gastric sleeve performed ye sterday. TECHNIQUE: Postoperative upper GI is performed utilizing 30 oz of Isovue-370. A total of 1 minute and 48 seconds of fluoroscopic time was utilized during procedure with 22 images saved. COMPARISON: None. FINDINGS: The patient swallowed contrast without difficulty or delay. Esophageal peristalsis and mo tility are delayed distally. There is moderate to severe delayed flow of contrast along the diaphrag matic hiatus into proximal stomach and subsequent flow into gastric sleeve. There is moderate to yazan re delayed flow from distal sleeve into pylorus and duodenal sweep. Patient remains asymptomatic. The re is no evidence of contrast extravasation to suggest leak. IMPRESSION: No evidence of postoperative leak status post recent gastric sleeve surgery. There is a m oderate to severe delay of contrast propulsion from the distal esophagus through the gastroesophageal junction and gastric sleeve with eventual passage.
[2018-06-25 11:02] LABS: Magnesium 1.9 mg/dL (1.6-2.3); Potassium 4.1 mmol/L (3.5-5.1)
[2018-06-25 11:13] LABS: Basophils % (A) 0 %; Eosinophils # (A) 0.3 k/uL (0-0.7); Eosinophils % (A) 3 %; HCT 39.6 % (34.0-46.0); HGB 12.4 gm/dL (11.4-16.0); Lymphocytes # (A) 1.8 k/uL (1.0-4.8); Lymphocytes % (A) 19 %; MCH 30.7 pg (25.0-35.0); MCHC 31.2 g/dL (31.0-37.0); MCV 98.4 fL (80.0-100.0); Mean Platelet Volume 6.8; Monocytes # (A) 0.5 k/uL (0-1.0); Monocytes % (A) 5 %; Neutrophils # (A) 6.9 k/uL (1.3-7.7); Neutrophils % (A) 71 %; Platelet Count 260 k/uL (150-450); RBC 4.03 m/uL (3.80-5.40); RDW 14.5 % (11.5-15.5); WBC 9.8 k/uL (3.8-10.6)
[2018-06-25] MEDS: SIMETHICONE 40 MG/0.6 ML DROPS 2,000 MG/30 ML BOTTLE PO PRN (11:54)
[2018-06-25] MEDS: 1: MVI, ADULT NO.4 WITH VIT K 10 ML, THIAMINE 100 MG, FOLIC ACID 1 MG, POTASSIUM CHLORID IV SCH ×6 (11:57)
--- NOTE | 2018-06-25 14:47 | PN ---
PROGRESS NOTE DATE OF SERVICE: 06/25/2018 This is a 57-year-old woman who was admitted after laparoscopic sleeve gastrectomy, is being closely monitored. Patient had some cough yesterday, but currently the patient is on bronchodilators, feeling much better. No chest pain. No palpitations. No fever. PHYSICAL EXAM: Alert and oriented x3. Pulse is 70, blood pressure is 135/91, respirations 16, temperature 98.4, pulse ox 94% on room air. HEENT: Conjunctive normal. NECK: No jugular venous distention. CARDIOVASCULAR SYSTEM: S1, S2, muffled. RESPIRATORY: Breath sounds diminished at the bases, a few rhonchi, no crackles. ABDOMEN: Soft, status post surgery. LEGS: No edema, no swelling. NERVOUS SYSTEM: No focal deficits. LABS: CBC within normal limits. Sodium 140, potassium 4.1. LFTs are noted. ASSESSMENT: 1. Status post laparoscopic sleeve gastrectomy for gastric prolapse and morbid obesity. 2. History of gastroesophageal reflux disease. 3. Hypertension. 4. Chronic bronchitis. 5. History of degenerative joint disease. 6. History of breast cancer. 7. History of bariatric surgery. 8. History of nicotine dependence. RECOMMENDATION: Recommend to continue current medications and monitor symptomatic treatment. At this time I recommend to continue the bronchodilators, incentive spirometry, DVT prophylaxis. Closely follow with Surgery. Further recommendations to follow. MMODL / IJN: [id number] /
--- NOTE | 2018-06-25 18:25 | P.PN ---
Progress Note - Text Progress Note Date: 06/25/18 the patient is postoperative day 1 from ssleeve gastrectomy. Her esophagram shows no evidence off leak. on exam her vital signs are stable. Incision sites are clean intact. Patient will continue to increase her oral diet. We anticipate discharge hmorrow.
[2018-06-26] MEDS: KETOROLAC 30 MG/ML 1 ML VIAL IVP SCH ×2 (00:20→06:20)
[2018-06-26] MEDS: 1: MVI, ADULT NO.4 WITH VIT K 10 ML, THIAMINE 100 MG, FOLIC ACID 1 MG, POTASSIUM CHLORID IV SCH ×12 (00:23→06:20)
[2018-06-26] MEDS: SIMETHICONE 40 MG/0.6 ML DROPS 2,000 MG/30 ML BOTTLE PO PRN ×2 (06:19→12:43)
[2018-06-26] MEDS ORDERED: BISACODYL 5 MG TABLET.DR PO PRN (08:00)
[2018-06-26] MEDS: IPRATROPIUM-ALBUTEROL 3 ML NEB INHALATION SCH ×2 (08:23→12:00)
[2018-06-26] MEDS: METOPROLOL TARTRATE 50 MG TAB PO SCH (08:45)
[2018-06-26] MEDS: PANTOPRAZOLE 40 MG/10 ML VIAL IV SCH (08:46)
[2018-06-26] MEDS: ENOXAPARIN 40 MG/0.4 ML SYRINGE SQ SCH (08:46)
[2018-06-26] MEDS: FAMOTIDINE 20 MG TAB PO SCH (08:46)
[2018-06-26 09:34] VITALS: BP 130/80; PULSE 64; RESP 17; TEMP 98.5
[2018-06-26] MEDS ORDERED: HYDROcodone/APAP 5-325MG 1 EACH TAB PO PRN (11:38)
--- NOTE | 2018-06-26 12:07 | P.DS ---
Providers Date of admission: 06/24/18 06:32 Expected date of discharge: 06/26/18 Attending physician: Rogerio Connors Consults: 06/24/18 10:34 Consult Physician Routine Consulting Provider: Raffi White Consult Reason/Comments: Medical management Do you want consulting provider notified?: Yes Primary care physician: Geraldine Turpin [facility] Course: 57-year-old female presented to undergo elective laparoscopic sleeve gastrectomy who has a history of morbid obesity. Patient has had a previous prolapse of her lap band. The band was removed due to the prolapse. On June 24 patient underwent laparoscopic sleeve gastrectomy for morbid obesity. The been no postop events. Esophagram was negative for evidence of a leak. At the time of discharge vitals were stable incision to the surgical site dry no redness. Diet was advanced to bariatric diet and tolerated Patient was felt to be appropriate discharged home Impression discharge diagnosis Hypertension History of esophageal reflux disease Morbid obesity BMI 32 Status post laparoscopic sleeve gastrotomy History of a gastric prolapse The above impression and plan of care have been discussed and directed by signing physician. Azul Castanon nurse practitioner acting as scribe for signing physician. Plan - Discharge Summary Discharge Rx Participant: Yes New Discharge Prescriptions: New Ondansetron Odt [Zofran Odt] 4 mg PO Q8HR PRN #9 tab PRN Reason: Nausea Bisacodyl [Dulcolax] 5 mg PO DAILY PRN #10 tablet. PRN Reason: Constipation Simethicone 40 mg/0.6 ml Drops [Mylicon Drops] 40 mg PO PCHS PRN #30 ml PRN Reason: Gas Bisacodyl [Dulcolax] 5 mg PO DAILY PRN #10 tablet. PRN Reason: Constipation Ondansetron Odt [Zofran Odt] 4 mg PO Q8HR PRN #9 tab PRN Reason: Nausea Simethicone 40 mg/0.6 ml Drops [Mylicon Drops] 40 mg PO PCHS PRN #30 ml PRN Reason: Gas HYDROcodone/APAP 5-325MG [Paxton 5-325] 1 tab PO Q4HR PRN 3 Days #18 tab PRN Reason: Moderate Pain No Action Metoprolol Wright/Hydrochlorothiaz [Dutoprol 50-12.5 mg Tablet] 1 tab PO QAM Guaifen/Phenyleph/Acetaminophn [Tylenol Sinus Severe Caplet] 1 tab PO DAILY PRN PRN Reason: Allergy Symptoms Acetaminophen [Tylenol Extra Strength] 1,000 mg PO DAILY PRN PRN Reason: Pain Omeprazole 40 mg PO DAILY #60 capsule. Discharge Medication List Acetaminophen [Tylenol Extra Strength] 1,000 mg PO DAILY PRN 06/05/18 [History] Guaifen/Phenyleph/Acetaminophn [Tylenol Sinus Severe Caplet] 1 tab PO DAILY PRN 06/05/18 [History] Metoprolol Wright/Hydrochlorothiaz [Dutoprol 50-12.5 mg Tablet] 1 tab PO QAM [History] Omeprazole 40 mg PO DAILY #60 capsule. 06/07/18 [Rx] Bisacodyl [Dulcolax] 5 mg PO DAILY PRN #10 tablet. 06/26/18 [Rx] Bisacodyl [Dulcolax] 5 mg PO DAILY PRN #10 tablet. 06/26/18 [Rx] HYDROcodone/APAP 5-325MG [Paxton 5-325] 1 tab PO Q4HR PRN 3 Days #18 tab [Rx] Ondansetron Odt [Zofran Odt] 4 mg PO Q8HR PRN #9 tab 06/26/18 [Rx] Ondansetron Odt [Zofran Odt] 4 mg PO Q8HR PRN #9 tab 06/26/18 [Rx] Simethicone 40 mg/0.6 ml Drops [Mylicon Drops] 40 mg PO [facility] PRN #30 ml [Rx] Simethicone 40 mg/0.6 ml Drops [Mylicon Drops] 40 mg PO HS PRN #30 ml [Rx] Follow up Appointment(s)/Referral(s): Rogerio Connors MD [STAFF PHYSICIAN] - 1-2 Days Activity/Diet/Wound Care/Special Instructions: No tub bath for six weeks. Shower daily. No lifting over 10 pounds for the next 2 weeks. Bariatric clear liquid diet May use ice packs to surgical site. No driving while taking narcotic for pain. Discharge Disposition: HOME SELF-CARE
--- NOTE | 2018-06-26 19:27 | PN ---
PROGRESS NOTE DATE OF SERVICE: 06/26/2018 This 57-year-old woman who was admitted with laparoscopic sleeve gastrectomy is improving significantly. No chest pain. No palpitations. No fever. PHYSICAL EXAMINATION: Alert and oriented x3. Pulse is 64, blood pressure 130/80, respiration 17, temperature 98.4, pulse ox 98% on room air. HEENT: Conjunctivae normal. NECK: No jugular venous distention. CARDIOVASCULAR SYSTEM: S1, S2 muffled. RESPIRATORY SYSTEM: Breath sounds diminished at the bases. A few rhonchi. No crackles. ABDOMEN: Soft. Status post surgery. LEGS: No edema. No swelling. NERVOUS SYSTEM: No focal deficit. LABS: CBC noted. Sodium 140, potassium 4.1. Creatinine is normal. ASSESSMENT: 1. Status post laparoscopic sleeve gastrectomy for gastric prolapse and morbid obesity. 2. History of gastroesophageal reflux disease. 3. Hypertension. 4. Chronic bronchitis. 5. History of degenerative joint disease. 6. History of breast cancer. 7. History of bariatric surgery. 8. History of nicotine dependence. RECOMMENDATIONS AND DISCUSSION: I recommend to continue current medication, continue with symptomatic treatment. Otherwise, closely follow Surgery. Guarded prognosis because of multiple complex medical issues. Further recommendations to follow. MMODL / IJN: [id number] /
== END 2018-06-26 15:40 | disposition home or self-care (01) | DRG 621 ==
LOC: 2ORMAIN 06:32 → 4SSUR 10:24
PROVIDERS: ADMIT Surgery; ATTEND Surgery
PROC: 0DB64Z3 Excision of Stomach, Percutaneous Endoscopic Approach, Vertical (ICD-10-PCS; principal; 2018-06-24 08:15)
DX: E66.01 Morbid (severe) obesity due to excess calories (principal); Z68.32 Body mass index [BMI] 32.0-32.9, adult; I10 Essential (primary) hypertension; J42 Unspecified chronic bronchitis; K21.9 Gastro-esophageal reflux disease without esophagitis; F17.210 Nicotine dependence, cigarettes, uncomplicated; M47.9 Spondylosis, unspecified; M17.0 Bilateral primary osteoarthritis of knee; K31.89 Other diseases of stomach and duodenum; Z90.10 Acquired absence of unspecified breast and nipple; Z85.3 Personal history of malignant neoplasm of breast; Z98.84 Bariatric surgery status; Z92.21 Personal history of antineoplastic chemotherapy; Z79.899 Other long term (current) drug therapy; Z83.3 Family history of diabetes mellitus
CPT/HCPCS: 74240; 80051; 80053; 82310; 82565; 83735; 84100; 84520; 85025; 88307; 94640; 94760; 94762

== ENCOUNTER → 2018-06-28 | Outpatient (CLI) | payer BC ==
[2018-06-28 11:44] VITALS: BP 163/90; PULSE 60; TEMP 98.1; BMI 32.8
== END | disposition home or self-care (01) ==
LOC: BARWHC3 10:04
PROVIDERS: ATTEND Surgery
DX: Z48.815 Encounter for surgical aftercare following surgery on the digestive system (principal); E66.01 Morbid (severe) obesity due to excess calories; Z98.84 Bariatric surgery status
CPT/HCPCS: 99211

== ENCOUNTER → 2018-07-15 | Outpatient (CLI) | payer BC ==
[2018-07-15 15:23] VITALS: BMI 31.2
--- NOTE | 2018-07-15 15:55 | P.HPBAR ---
Bariatric H&P - History & Physicial H&P Date: 07/15/18 History & Physicial: Visit/CC: Patient initial contact: Initial weight: 92.079 kg Initial weight in pounds: Height: 5 ft 7 in Initial BMI: Last weight: Current weight: 90.492 kg Current weight in pounds: Current BMI: 31.2 [place] body weight (based on NIH guidelines): 61.235 kg Excess body weight loss: The patient is a 57 year-old F who presents for Bariatric Assessment. Patient presents today for sleeve gastrectomy follow-up. She had surgery performed. Ago. She states she is doing well. She has no complaints. Past Medical History Past Medical History: Cancer, GERD/Reflux, Hypertension, Osteoarthritis (OA) Additional Past Medical History / Comment(s): HX BRONCHITIS, BREAST CANCER WITH SURGERY & CHEMO (2003).,ARTHRITIS WITH BACK & KNEE PAIN., GASTRIC PROLAPSE AND BAND REMOVED 04/10/18., History of Any Multi-Drug Resistant Organisms: None Reported Past Surgical History: Adenoidectomy, Bariatric Surgery, Breast Surgery, Orthopedic Surgery, Tonsillectomy Additional Past Surgical History / Comment(s): carissa mastectomy (2003) , carissa breast reconstruction., panniculectomy., Cyst on rt hand removed., lap band 2002-(band removed 04/10/18), EGD sleeve gastrectomy 06-24-18 Past Anesthesia/Blood Transfusion Reactions: Family History of Problems w/ Anesthesia Additional Past Anesthesia/Blood Transfusion Reaction / Comm: sister PONV Past Psychological History: No Psychological Hx Reported Smoking Status: Current every day smoker Past Alcohol Use History: Occasional Additional Past Alcohol Use History / Comment(s): SMOKES 1 PPD OR LESS, SMOKING OFF AND ON, SMOKED APPROX 30 YEARS. Past Drug Use History: None Reported - Past Family History Father Family Medical History: Diabetes Mellitus Mother Family Medical History: No Reported History Surgical - Exam - General well developed, no distress - Eyes PERRL - ENT normal pinna - Abdomen Abdomen: soft, non tender Bariatric Assessment & Plan Plan: Status post sleeve gastrectomy. Patient is doing quite well. She'll follow-up in one month. Bariatric Checklist Checklist: Plan: Checklist: EGD: 1. Hiatal hernia: 2. H. Pylori: HgbA1c: Vitamin D: Smoking: Current every day smoker Primary care physician referral: DR. LEDBETTER Psychiatry clearance: Cardiology clearance: Sleep study: Diet journal: VTE risk score: VTE risk level: Rehab needs at discharge:
[2018-07-16 13:21] VITALS: BP 165/90; PULSE 60; RESP 16; TEMP 98.1
== END | disposition home or self-care (01) ==
LOC: BARWHC3 13:56
PROVIDERS: ATTEND Surgery
DX: E66.01 Morbid (severe) obesity due to excess calories (principal); Z68.31 Body mass index [BMI] 31.0-31.9, adult
CPT/HCPCS: 97803; 99211

== ENCOUNTER → 2019-01-13 | Outpatient (CLI) | payer BC ==
[2019-01-13 14:21] VITALS: BP 112/65; PULSE 68; TEMP 98.6; BMI 26.7
--- NOTE | 2019-01-13 14:30 | P.HPBAR ---
Bariatric H&P - History & Physicial H&P Date: 01/13/19 History & Physicial: Visit/CC: six month follow up Patient initial contact: Initial weight: 92.079 kg Initial weight in pounds: 203.00 Height: 5 ft 7 in Initial BMI: 31.8 Last weight: Current weight: 77.564 kg Current weight in pounds: 171.00 Current BMI: 26.7 [place] body weight (based on NIH guidelines): 61.235 kg Excess body weight loss: 47.0% The patient is a 58 year-old F who presents for Bariatric Assessment. Patient presents today for sleeve gastrectomy fall. She's not been seen in 6 months. She lost approximate 40 pounds her last visit. She has some mild GERD. Past Medical History Past Medical History: Cancer, GERD/Reflux, Hypertension, Osteoarthritis (OA) Additional Past Medical History / Comment(s): HX BRONCHITIS, BREAST CANCER WITH SURGERY & CHEMO (2003).,ARTHRITIS WITH BACK & KNEE PAIN., GASTRIC PROLAPSE AND BAND REMOVED 04/10/18., History of Any Multi-Drug Resistant Organisms: None Reported Past Surgical History: Adenoidectomy, Bariatric Surgery, Breast Surgery, Orthopedic Surgery, Tonsillectomy Additional Past Surgical History / Comment(s): carissa mastectomy (2003) , carissa breast reconstruction., panniculectomy., Cyst on rt hand removed., lap band 2002-(band removed 04/10/18), EGD sleeve gastrectomy 06-24-18 Past Anesthesia/Blood Transfusion Reactions: Family History of Problems w/ Anesthesia Additional Past Anesthesia/Blood Transfusion Reaction / Comm: sister PONV Past Psychological History: No Psychological Hx Reported Smoking Status: Current every day smoker Past Alcohol Use History: Occasional Additional Past Alcohol Use History / Comment(s): SMOKES 1 PPD OR LESS, SMOKING OFF AND ON, SMOKED APPROX 30 YEARS. Past Drug Use History: None Reported - Past Family History Father Family Medical History: Diabetes Mellitus Mother Family Medical History: No Reported History Surgical - Exam Vital Signs Temp Pulse BP 98.6 F 68 112/65 01/13/19 14:19 01/13/19 14:19 01/13/19 14:19 - General well developed, well nourished, no distress - Eyes PERRL - Abdomen Abdomen: soft, non tender Bariatric Assessment & Plan Plan: Status post sleeve gastrectomy. Patient is an excellent weight loss. Her current BMI is 27. Her GERD is minimal will be observed. She'll follow-up in 3 months. Bariatric Checklist Checklist: Plan: Checklist: EGD: 1. Hiatal hernia: 2. H. Pylori: HgbA1c: Vitamin D: Smoking: Current every day smoker Primary care physician referral: DR. LEDBETTER Psychiatry clearance: Cardiology clearance: Sleep study: Diet journal: VTE risk score: VTE risk level: Rehab needs at discharge:
[2019-01-13 15:05] LABS: HCT 46.4 % (34.0-46.0); MCHC 32.3 g/dL (31.0-37.0); MCV 99.1 fL (80.0-100.0); Macrocytosis Slight; Mean Platelet Volume 6.3; Platelet Count 323 k/uL (150-450); RBC 4.68 m/uL (3.80-5.40); RDW 15.1 % (11.5-15.5); WBC 8.9 k/uL (3.8-10.6)
[2019-01-14 00:16] LABS: Iron Saturation 29.56 (12.00-45.00)
[2019-01-14 00:22] LABS: African American GFR (CKD) 81.1 (60.0-200.0); Albumin 4.2 g/dL (3.80-4.90); Albumin/Globulin Ratio 2.1 (1.60-3.17); Anion Gap 8.2 mmol/L (4.00-12.00); BUN/Creat Ratio 16.67 Ratio (12.00-20.00); Calcium 9.5 mg/dL (8.7-10.3); Carbon Dioxide 27.8 mmol/L (21.6-31.8); Potassium 5.4 mmol/L (3.5-5.5); Total Bilirubin 0.3 mg/dL (0.2-1.2); Total Protein 6.2 g/dL (6.2-8.2)
[2019-01-14 00:23] LABS: Vitamin D 25 Hydroxy 16.8 ng/mL (30.0-100.0)
== END ==
LOC: BARWHC3 13:35
PROVIDERS: ATTEND Surgery
DX: Z09 Encounter for follow-up examination after completed treatment for conditions other than malignant neoplasm (principal); K21.9 Gastro-esophageal reflux disease without esophagitis; E66.01 Morbid (severe) obesity due to excess calories; D50.8 Other iron deficiency anemias; E44.0 Moderate protein-calorie malnutrition; E55.9 Vitamin D deficiency, unspecified; F17.200 Nicotine dependence, unspecified, uncomplicated; Z98.84 Bariatric surgery status; Z68.26 Body mass index [BMI] 26.0-26.9, adult
CPT/HCPCS: 36415; 80053; 82306; 82607; 83540; 83550; 84425; 84443; 85027; 99211

== ENCOUNTER → 2021-01-18 | Outpatient (CLI) | payer BC ==
[2021-01-18 10:10] VITALS: BP 118/72; PULSE 67; RESP 18; TEMP 98.6
--- NOTE | 2021-01-18 11:10 | P.HPOB ---
History of Present Illness H&P Date: 01/18/21 Chief Complaint: The patient is here for her routine gynecologic exam. This is a 60-year-old with an LMP of 2003. The patient is here to reestablish with this office. It has been more than 5 years since her last pelvic exam. She is without gynecologic complaints and denies any postmenopausal bleeding. Review of Systems She has lost about 40 pounds after her gastric sleeve bariatric surgery 2-3 years ago. Her weight has been stable over the past 1 year. Respiratory: She can get slightly short of breath upon exertion. Cardiac: Occasional palpitation. GI: She thinks she feels a small cyst near the rectal opening. She is otherwise without GI complaints. Neurologic: She has been experiencing vertigo with some dizziness and change in balance. His is worse when she drinks alcohol. She has spoken with her PCP about this. She is getting some blood work done today through her PCP. Past Medical History Past Medical History: Cancer, GERD/Reflux, Hypertension, Osteoarthritis (OA) Additional Past Medical History / Comment(s): Breast cancer 2002 and is status post bilateral mastectomy and chemotherapy (Pt is BRCA neg). Osteopenia. HX BRONCHITIS,,ARTHRITIS WITH BACK & KNEE PAIN., GASTRIC PROLAPSE AND BAND REMOVED 04/10/18. 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 History of Any Multi-Drug Resistant Organisms: None Reported Past Surgical History: Adenoidectomy, Bariatric Surgery, Breast Surgery, Orthopedic Surgery, Tonsillectomy Additional Past Surgical History / Comment(s): carissa mastectomy (2003) , carissa breast reconstruction with implants., panniculectomy., Cyst on rt hand removed., lap band 2002-(band removed 04/10/18), EGD sleeve gastrectomy 06-24-18. Right hand surgery. Colonoscopy 2009. Past Anesthesia/Blood Transfusion Reactions: Family History of Problems w/ Anesthesia Additional Past Anesthesia/Blood Transfusion Reaction / Comment(s): sister PONV Past Psychological History: No Psychological Hx Reported Smoking Status: Current every day smoker (One pack per day) Past Alcohol Use History: Occasional Additional Past Alcohol Use History / Comment(s): SMOKES 1 PPD OR LESS, SMOKING OFF AND ON, SMOKED APPROX 30 YEARS. Past Drug Use History: None Reported Additional History: She is and is not seeing anybody at this time. She is not sexually active. She is a teacher at [employer] - Past Family History Father Family Medical History: Diabetes Mellitus, Myocardial Infarction ([place]) Mother Family Medical History: CVA/TIA, Dementia, Hypertension Additional Family Medical History / Comment(s): Maternal grandmother had breast cancer. Medications and Allergies Home Medications Medication Instructions Recorded Confirmed Type Acetaminophen Tab [Tylenol] 325 mg PO Q6H 01/18/21 01/18/21 History Escitalopram Oxalate [Lexapro] 10 mg PO DAILY 01/18/21 01/18/21 History Losartan-Hctz 50-12.5 mg [Hyzaar 1 tab PO DAILY 01/18/21 01/18/21 History 50-12.5] Meclizine [Antivert] 12.5 mg PO TID 01/18/21 01/18/21 History Multivitamin [Multivitamins Adult 1 each PO DAILY 01/18/21 01/18/21 History Gummies] Allergies Allergy/AdvReac Type Severity Reaction Status Date / Time No Known Allergies Allergy Verified 01/18/21 09:37 Exam Vital Signs Temp Pulse Resp BP Pulse Ox 01/18/21 10:03 98.6 F 67 18 118/72 98 Intake and Output 01/17/21 01/18/21 01/18/21 22:59 06:59 14:59 Other: Weight 78.018 kg Height 5 feet 6 inches, weight 172 pounds, BMI 27.8. This is a well-developed well-nourished white female who is alert and oriented times 3 in no acute distress. HEENT: Within normal limits. NECK: Supple without mass or thyromegaly. CHEST AND LUNGS: Clear to auscultation. HEART: Regular rate and rhythm. BREASTS: Are without mass or discharge. The breasts are consistent with bilateral mastectomies with bilateral implants. There is no nipple or areola on both sides. AXILLARY EXAM: Negative for adenopathy. BACK: Negative for CVA tenderness. ABDOMEN: Soft, nontender, without palpable masses. PELVIC EXAM: Normal external genitalia with mild to moderate atrophy. Cervix and vagina appear normal with mild to moderate atrophy. There is no unusual discharge. There is no evidence of prolapse. The uterus is midposition, nongravid size and nontender. There are no palpable adnexal masses or tenderness. RECTAL EXAM: There is an external hemorrhoid anteriorly which is benign, soft and nontender and measures approximately 1 cm. Rectovaginal exam is negative for mass or tenderness and is negative for occult blood. EXTREMITIES: Nontender. IMPRESSION: 1. 60-year-old menopausal female with normal gynecologic exam. 2. History of breast cancer in 2003 status post bilateral mastectomies with no evidence of recurrence at this time. 3. History of osteopenia. 4. Smoker. PLAN: 1. Pap smear cotest was performed. 2. Mammograms have been discontinued. 3. Osteoporosis prevention was discussed. I have stressed the importance of adequate calcium, vitamin D and regular exercise. Recommended amounts of calcium and vitamin D were also discussed. Bone density test will be done today. 4. She has completed her Covid vaccination series. 5. I recommended that she try to quit smoking. She will discuss with her PCP possible screening for lung cancer because of her long history of tobacco use. We have discussed options such as low-dose CT scan and chest x-ray. She will discuss this with her PCP. 6. She will also discussed colorectal cancer screening options with her PCP. 7. She was advised to return in one year for her annual well woman exam.
== END ==
LOC: WWCWWP 09:26
PROVIDERS: ATTEND Obstetrics & Gynecology
DX: Z01.419 Encounter for gynecological examination (general) (routine) without abnormal findings (principal); I10 Essential (primary) hypertension; M19.90 Unspecified osteoarthritis, unspecified site; F17.210 Nicotine dependence, cigarettes, uncomplicated; Z87.39 Personal history of other diseases of the musculoskeletal system and connective tissue; Z85.3 Personal history of malignant neoplasm of breast; Z90.13 Acquired absence of bilateral breasts and nipples; Z80.3 Family history of malignant neoplasm of breast

== ENCOUNTER → 2021-01-18 | Outpatient (CLI) | payer BC ==
[2021-01-18 16:55] LABS: HCT 45.1 % (37.2-46.3); HGB 14.6 g/dL (12.0-15.0); MCH 30.7 pg (27.0-32.0); MCHC 32.4 g/dL (32.0-37.0); MCV 94.9 fL (80.0-97.0); Mean Platelet Volume 10.9 fL (9.5-12.2); Platelet Count 350 X 10*3/uL (140-440); RBC 4.75 X 10*6/uL (4.10-5.20); RDW 14.9 % (11.5-14.5); WBC 9.56 X 10*3/uL (4.50-10.00)
[2021-01-18 20:45] LABS: African American GFR (CKD) 92.2 (60.0-200.0); Albumin 4.6 g/dL (3.80-4.90); Albumin/Globulin Ratio 1.7 (1.60-3.17); Anion Gap 9.4 mmol/L (4.00-12.00); BUN/Creat Ratio 16.25 Ratio (12.00-20.00); Calcium 9.5 mg/dL (8.7-10.3); Carbon Dioxide 27.6 mmol/L (21.6-31.8); Globulin 2.7 g/dL (1.6-3.3); Non-African American GFR(CKD) 79.6 (60.0-200.0); Potassium 3.6 mmol/L (3.5-5.5); Total Bilirubin 0.6 mg/dL (0.2-1.2); Total Protein 7.3 g/dL (6.2-8.2)
== END | disposition home or self-care (01) ==
LOC: LABWHC1 10:57
PROVIDERS: ATTEND Internal Medicine
DX: R55 Syncope and collapse (principal); H81.4 Vertigo of central origin
CPT/HCPCS: 36415; 80053; 82306; 82607; 84439; 84443; 85027

== ENCOUNTER → 2021-01-24 | Outpatient (CLI) | payer BC ==
--- NOTE | 2021-01-25 08:20 | XR ---
EXAMINATION TYPE: XR chest 2V DATE OF EXAM: 01/24/2021 COMPARISON: NONE HISTORY: Smoker TECHNIQUE: Frontal and lateral views of the chest are obtained. FINDINGS: There is no focal air space opacity, pleural effusion, or pneumothorax seen. The cardiac silhouette size is within normal limits. The osseous structures are intact. Surgical clips are note d in the right axilla. IMPRESSION: No acute cardiopulmonary process.
== END | disposition home or self-care (01) ==
LOC: RADXRMAIN 15:41
PROVIDERS: ATTEND Internal Medicine
DX: F17.200 Nicotine dependence, unspecified, uncomplicated (principal)
CPT/HCPCS: 71046

== ENCOUNTER → 2021-03-01 | Outpatient (CLI) | payer BC ==
[2021-03-01 15:10] LABS: Basophils # (A) 0.1 k/uL (0-0.2); Basophils % (A) 1 %; Eosinophils # (A) 0.2 k/uL (0-0.7); Eosinophils % (A) 2 %; HCT 44.1 % (34.0-46.0); HGB 14.4 gm/dL (11.4-16.0); Lymphocytes # (A) 2.2 k/uL (1.0-4.8); Lymphocytes % (A) 27 %; MCH 31.9 pg (25.0-35.0); MCHC 32.7 g/dL (31.0-37.0); MCV 97.6 fL (80.0-100.0); Mean Platelet Volume 6.6; Monocytes # (A) 0.7 k/uL (0-1.0); Monocytes % (A) 8 %; Neutrophils # (A) 4.9 k/uL (1.3-7.7); Neutrophils % (A) 59 %; Platelet Count 351 k/uL (150-450); RBC 4.52 m/uL (3.80-5.40); RDW 15.2 % (11.5-15.5); WBC 8.3 k/uL (3.8-10.6)
== END | disposition home or self-care (01) ==
LOC: LABPAT 14:37
PROVIDERS: ATTEND Obstetrics & Gynecology Obstetrics
DX: Z01.812 Encounter for preprocedural laboratory examination (principal); I10 Essential (primary) hypertension
CPT/HCPCS: 36415; 85025

== ENCOUNTER 2021-03-07 10:18 | Day surgery (SDC) | payer BC ==
[2021-03-03 09:19] VITALS: BMI 27.4
[~2021-03-07 10:18] MED LIST changes: +ACETAMINOPHEN IV (For NPO) 1,000 MG in EMPTY BAG 1 BAG IVPB ONE; -DEXAMETHASONE SOD PHOSPHATE 10 MG/ML 1 ML VIAL IV ONE; +DEXAMETHASONE SOD PHOSPHATE 4 MG/ML 1 ML VIAL IV ONE; +HYDROmorphone 0.5 MG/0.5 ML SYRINGE IVP PRN; +LACTATED RINGERS 1,000 ML IV SCH; -MIDAZOLAM (PF) 2 MG/2 ML VIAL IV PRN; -SCOPOLAMINE 1.5MG/72HR PATCH TRANSDERM ONE; -ceFAZolin IN SWFI 2 GM/20 ML SYRINGE IVP ONE
[2021-03-07 10:46] VITALS: TEMP 97.4
[2021-03-07] MEDS ORDERED: ACETAMINOPHEN IV (For NPO) 1,000 MG/100 ML VIAL IVPB ONE (10:47)
--- NOTE | 2021-03-07 11:37 | P.HPOB ---
History of Present Illness H&P Date: 03/07/21 Chief Complaint: HGSIL, ECC This is a 60 yo female that presented for colposcopy with pap findings of ASCUS HR HPV. she underwent colposcopy, ECC sample with findings of hgsil . She is a known breast cancer survivor, she took tamoxifen for 5 years in her mid 40s. menopausal since age 42 Review of Systems Constitutional: Denies chills, Denies fatigue, Denies fever Ears, nose, mouth and throat: Denies headache Cardiovascular: Denies leg edema Respiratory: Denies dyspnea Gastrointestinal: Denies nausea, Denies vomiting Menstruation: Reports postmenopausal Past Medical History Past Medical History: Cancer, GERD/Reflux, Hypertension, Osteoarthritis (OA) Additional Past Medical History / Comment(s): abnormal pap smear and coposcopy,HX BRONCHITIS, BREAST CANCER WITH SURGERY & CHEMO (2003).,ARTHRITIS WITH BACK & KNEE PAIN., GASTRIC PROLAPSE AND BAND REMOVED 04/10/18., History of Any Multi-Drug Resistant Organisms: None Reported Past Surgical History: Adenoidectomy, Bariatric Surgery, Breast Surgery, Orthopedic Surgery, Tonsillectomy Additional Past Surgical History / Comment(s): carissa mastectomy (2003) , carissa breast reconstruction., panniculectomy., Cyst on rt hand removed., lap band 2002-(band removed 04/10/18), EGD sleeve gastrectomy 06-24-18 Past Anesthesia/Blood Transfusion Reactions: Family History of Problems w/ Anesthesia Additional Past Anesthesia/Blood Transfusion Reaction / Comment(s): sister PONV Smoking Status: Current every day smoker - Past Family History Father Family Medical History: Diabetes Mellitus, Myocardial Infarction (PR) Mother Family Medical History: CVA/TIA, Dementia, Hypertension Additional Family Medical History / Comment(s): Maternal grandmother had breast cancer. Medications and Allergies Home Medications Medication Instructions Recorded Confirmed Type Escitalopram Oxalate [Lexapro] 10 mg PO QAM 01/18/21 03/07/21 History Losartan-Hctz 50-12.5 mg [Hyzaar 1 tab PO QAM 01/18/21 03/07/21 History 50-12.5] Meclizine [Antivert] 12.5 mg PO TID PRN 01/18/21 03/03/21 History Multivitamin [Multivitamins Adult 1 each PO DAILY 01/18/21 03/03/21 History Gummies] Cyanocobalamin (Vitamin B-12) 1,000 mcg PO DAILY 03/03/21 03/03/21 History [Vitamin B-12] Ergocalciferol [Vitamin D2 (1250 1,250 mcg PO WE 03/03/21 03/03/21 History Mcg = 80204 Iu)] Allergies Allergy/AdvReac Type Severity Reaction Status Date / Time No Known Allergies Allergy Verified 03/07/21 10:41 Exam Osteopathic Statement: *. No significant issues noted on an osteopathic structural exam other than those noted in the History and Physical/Consult. Targeted physical exam is performed in this date and rn hematology a well-nourished well-developed menopausal female in no acute distress, breathing is noted to be nonlabored, heart has regular rhythm, abdomen is soft and nontender. Pelvic exam is deferred. Assessment and Plan (1) HGSIL (high grade squamous intraepithelial dysplasia) Current Visit: Yes Status: Acute Code(s): USB1861 - SNOMED Code(s): 643919082 (2) JATINDER II (cervical intraepithelial neoplasia II) Current Visit: Yes Status: Acute Code(s): N87.1 - MODERATE CERVICAL DYSPLASIA SNOMED Code(s): 705271623 Plan: Plan CKC given ECC findings. procedure reviewed and questions answered, patient states understanding and wishes to proceed.
[2021-03-07] MEDS ORDERED: MIDAZOLAM 2 MG/2 ML VIAL ONE (12:13)
[2021-03-07] MEDS ORDERED: PROPOFOL 10 MG/ML 20 ML VIAL IV ONE (12:13)
[2021-03-07] MEDS ORDERED: LIDOCAINE 1% INJ 10MG/ML (20 ML MDV) ONE (12:13)
[2021-03-07] MEDS ORDERED: FERRIC SUBSULFATE (MONSELS) JAR TOPICAL ONE (12:35)
[2021-03-07 13:13] VITALS: RESP 16
--- NOTE | 2021-03-07 14:02 | P.OP ---
Date of Procedure: 03/07/21 Preoperative Diagnosis: HGSIL Postoperative Diagnosis: Same Procedure(s) Performed: Cold knife cone Anesthesia: MAC Surgeon: Milagros Saavedra Estimated Blood Loss (ml): 25 IV fluids (ml): 100 Urine output (ml): 75 Pathology: other (::) Indications for Procedure: HGSIL on ECC specimen Operative Findings: Postmenopausal vaginal vault,: Cone specimen to pathology for analysis Description of Procedure: Patient was taken back to the operating suite where general anesthesia obtained without difficulty by the anesthesia . She was prepped and draped in normal sterile fashion in the dorsal lithotomy position. A red rubber catheter was then used to drain the bladder of clear yellow urine. Weighted speculum was placed in the posterior vaginal vault the interval of the cervix is visualized and grasped with single-tooth tenaculum per. Uterine sound was placed through the endocervical canal. A 11 blade was then used to perform a circumferential specimen, cold knife: Specimen this was then sharply removed and sent to p athology for analysis. The cervical stump was then cauterized with the ball cautery. Monsel's was placed along the cervical stump. Hemostasis was appreciated. The single-tooth tenaculum was removed and hemostasis was appreciated. All instrument were correct 2 at the end of procedure. Patient tolerated procedure well and was taken the recovery room awake in stable condition.
[2021-03-07 14:05] VITALS: BP 122/65; PULSE 55
== END 2021-03-07 14:12 | disposition home or self-care (01) ==
LOC: OR 10:18
PROVIDERS: ATTEND Obstetrics & Gynecology Obstetrics
DX: R87.613 High grade squamous intraepithelial lesion on cytologic smear of cervix (HGSIL) (principal); K21.9 Gastro-esophageal reflux disease without esophagitis; I10 Essential (primary) hypertension; M19.90 Unspecified osteoarthritis, unspecified site; Z85.3 Personal history of malignant neoplasm of breast; F17.210 Nicotine dependence, cigarettes, uncomplicated; Z90.13 Acquired absence of bilateral breasts and nipples; Z92.21 Personal history of antineoplastic chemotherapy; Z98.84 Bariatric surgery status; Z79.899 Other long term (current) drug therapy; Z80.3 Family history of malignant neoplasm of breast
CPT/HCPCS: 88307; 57520; J2250; J1100; J0690; J2405; J2001; J0131; J2704

== ENCOUNTER → 2021-03-22 | Outpatient (CLI) | payer BC ==
--- NOTE | 2021-03-22 20:02 | BD ---
EXAMINATION TYPE: Axial Bone Density DATE OF EXAM: 03/22/2021 COMPARISON: 06/04/2015 CLINICAL HISTORY: Postmenopausal screening Height: 66 Weight: 175.0 FRAX RISK QUESTIONS: Alcohol (3 or more units per day): no Family History (Parent hip fracture): no Glucocorticoids (More than 3mos): no (Ex: prednisone, prednisolone, methylprednisolone, dexamethasone, and hydrocortisone). History of Fracture in Adulthood: yes Secondary Osteoporosis: 1. Type 1 Diabetes: no 2. Hyperthyroidism: no 3. Menopause before 45: yes 4. Malnutrition: no 5. Chronic liver disease: no Rheumatoid Arthritis: no Current Tobacco Use: yes RISK FACTORS HISTORY OF: History of Wrist Fracture: yes but unsure which one When: as a child Surgery to Spine/Hip(right/left)/Wrist (right/left): no Family History of Osteoporosis: yes Active: yes Diet low in dairy products/other sources of calcium: no Postmenopausal woman: yes Lost more than 2 inches in height since high school: no MEDICATIONS: blood pressure, water pill, lexapro, vit d, multi-vit, b 12 Additional History: EXAM MEASUREMENTS: Bone mineral densitometry was performed using the [employer] System. Bone mineral density as measured about the Lumbar spine is: ----- L1-L4(G/cm2): 1.160 T Score Values are as follows: ----- L2: -0.1 ----- L3: -0.5 ----- L4: -0.3 ----- L1-L4: -0.2 Bone mineral density has: decreased -3.2 % since study of: 06.04.2015 Bone mineral density about the R hip (g/cm2): 0.696 Bone mineral density about the L hip (g/cm2): 0.713 T Score values are as follows: -----R Neck: -2.5 -----L Neck: -2.3 -----R Total: -1.9 -----L Total: -1.8 Bone mineral density has: decreased -12.9 % since study of: 06.04.2015 IMPRESSION: Osteoporosis (T Score less than -2.5). There is increased fracture risk and therapy is usually indicated based on age. Re-Screen 1-2 years. NOTE: T-SCORE=SD OF THE YOUNG ADULT MEAN.
--- NOTE | 2021-03-24 09:39 | P.PN ---
Progress Note - Text Progress Note Date: 03/24/21 OUTPATIENT FOLLOW-UP NOTE TEST(S)/RESULTS: Bone density test done on 03/22/2021 shows osteoporosis. METHOD OF NOTIFICATION: The patient was notified by phone. PATIENT COMMENTS: The patient is interested in starting treatment for this. DIAGNOSIS: Osteoporosis DISCUSSION: There was a significant decrease in bone density in her hips compared with her 2015 bone density test. We've discussed the increased risk for bone fracture. We've discussed benefits of taking medication for osteoporosis. We have discussed possible risks with bisphosphonates such as esophageal ulceration, especially if taken improperly, and we have discussed the risks of osteonecrosis of the jaw. She does not have any upcoming dental surgery or jaw surgeries in the near future. Recent lab tests on 01/18/2021 include normal BUN, normal creatinine, and normal serum calcium. PLAN: Information on osteoporosis and Fosamax will be sent to the patient. After reviewing this information, if she desires to proceed with medication, she will start Fosamax 70 mg by mouth every week. The electronic prescription will be sent to my her pharmacy in [place]. We have also discussed how it is important to take the medication on an empty stomach, to drink a full glass of water with the medication, and to stay upright for at least 1 hour after taking the medication. She will call if she has any questions or problems.
== END | disposition home or self-care (01) ==
LOC: RADBDWWP 15:54
PROVIDERS: ATTEND Obstetrics & Gynecology
DX: Z13.820 Encounter for screening for osteoporosis (principal); M81.0 Age-related osteoporosis without current pathological fracture
CPT/HCPCS: 77080

== ENCOUNTER → 2021-05-13 | Outpatient (CLI) | payer BC ==
[2021-05-13 15:40] LABS: Basophils % (A) 1 %; Eosinophils # (A) 0.2 k/uL (0-0.7); Eosinophils % (A) 3 %; HCT 44.5 % (34.0-46.0); HGB 13.9 gm/dL (11.4-16.0); Lymphocytes # (A) 2.1 k/uL (1.0-4.8); Lymphocytes % (A) 34 %; MCH 30.3 pg (25.0-35.0); MCHC 31.3 g/dL (31.0-37.0); Mean Platelet Volume 6.8; Monocytes # (A) 0.4 k/uL (0-1.0); Monocytes % (A) 6 %; Neutrophils # (A) 3.4 k/uL (1.3-7.7); Neutrophils % (A) 53 %; Platelet Count 352 k/uL (150-450); RBC 4.59 m/uL (3.80-5.40); RDW 14.4 % (11.5-15.5); WBC 6.4 k/uL (3.8-10.6)
[2021-05-13 15:53] LABS: Potassium 4.8 mmol/L (3.5-5.1)
== END | disposition home or self-care (01) ==
LOC: LABPAT 14:44
PROVIDERS: ATTEND Obstetrics & Gynecology Obstetrics
DX: Z01.812 Encounter for preprocedural laboratory examination (principal)
CPT/HCPCS: 36415; 80051; 82565; 82947; 84520; 85025; 87086

== ENCOUNTER 2021-05-17 05:49 | Observation (INO) | payer BC ==
[2021-05-12 15:17] VITALS: BMI 28.2
[2021-05-17] MEDS ORDERED: DEXAMETHASONE SOD PHOSPHATE 4 MG/ML 1 ML VIAL IV ONE (05:55)
[2021-05-17] MEDS ORDERED: MIDAZOLAM 2 MG/2 ML VIAL IV PRN (05:55)
[2021-05-17] MEDS ORDERED: ONDANSETRON 4 MG/2 ML VIAL IVP ONE (05:55)
[2021-05-17] MEDS ORDERED: SCOPOLAMINE 1.5MG/72HR PATCH TRANSDERM ONE (05:55)
[2021-05-17] MEDS ORDERED: LACTATED RINGERS 1,000 ML IV ONE (06:34)
[2021-05-17] MEDS ORDERED: HYDROmorphone 0.5 MG/0.5 ML SYRINGE IVP PRN (07:00)
[2021-05-17] MEDS ORDERED: PHENYLEPHRINE-0.9% NACL SYG 1,000 MCG/10 ML SYRINGE ONE (07:30)
[2021-05-17] MEDS ORDERED: SUCCINYLCHOLINE CHLORIDE 100 MG/5 ML SYR IV ONE (07:30)
[2021-05-17] MEDS ORDERED: LIDOCAINE 1% INJ 10MG/ML (20 ML MDV) ONE (07:30)
[2021-05-17] MEDS ORDERED: MIDAZOLAM 2 MG/2 ML VIAL ONE (07:30)
[2021-05-17] MEDS ORDERED: fentaNYL (PF) 50 MCG/ML 2 ML AMP ONE (07:30)
[2021-05-17] MEDS ORDERED: PROPOFOL 10 MG/ML 20 ML VIAL IV ONE (07:30)
[2021-05-17] MEDS ORDERED: ROCURONIUM 10 MG/ML (5 ML VIAL) IV ONE (07:30)
[2021-05-17] MEDS ORDERED: GLYCOPYRROLATE 0.2 MG/ML 2 ML VIAL ONE (07:30)
[2021-05-17] MEDS ORDERED: HYDROmorphone (PF) 1 MG/ML ONE (07:30)
[2021-05-17] MEDS ORDERED: NEOSTIGMINE 1 MG/ML 10 ML VIAL ONE (07:30)
[2021-05-17] MEDS ORDERED: .ACETAMINOPHEN IV (PEDS) 1,000 MG/100 ML VIAL IVPB ONE (07:35)
[2021-05-17] MEDS ORDERED: BUPIVACAINE (PF) 0.25% 30 ML VIAL SQ ONE ×2 (08:07)
[2021-05-17] MEDS ORDERED: IBUPROFEN 600 MG TAB PO PRN (08:53)
[2021-05-17] MEDS ORDERED: SIMETHICONE 80 MG CHEWABLE PO PRN (08:53)
[2021-05-17] MEDS ORDERED: ONDANSETRON 4 MG/2 ML VIAL IVP PRN (08:53)
[2021-05-17] MEDS ORDERED: Acetaminophen-Codeine 300-30mg TAB PO PRN ×2 (08:53)
--- NOTE | 2021-05-17 08:56 | P.HPOB ---
History of Present Illness H&P Date: 05/17/21 Chief Complaint: JATINDER 2, breast cancer survivor This is a 60-year-old female with a history of breast cancer. Patient has been followed for high-grade Pap smears, patient underwent colposcopy with ECC, JATINDER-2 was appreciated on specimen. Patient has a history of a LEEP procedure for this same dysplasia. Patient desires definitive treatment given persistent JATINDER-2. Patient states given her history of breast cancer she desires definitive treatment with TWYLA RUSSELL. Review of Systems Constitutional: Denies chills, Denies fatigue, Denies fever Ears, nose, mouth and throat: Denies headache Cardiovascular: Denies leg edema Respiratory: Denies dyspnea Gastrointestinal: Denies nausea, Denies vomiting Genitourinary: Denies Past Medical History Past Medical History: Cancer, Hypertension, Osteoarthritis (OA) Additional Past Medical History / Comment(s): HX BRONCHITIS, BREAST CANCER WITH SURGERY & CHEMO (2003).,ARTHRITIS WITH BACK & KNEE PAIN., GASTRIC PROLAPSE AND LAP BAND REMOVED 04/10/18., GASTRIC SLEEVE (2018).,OSTEOPOROSIS., PT STATES PRE- CANCEROUS CERVICAL CELLS. History of Any Multi-Drug Resistant Organisms: None Reported Past Surgical History: Adenoidectomy, Bariatric Surgery, Breast Surgery, Orthopedic Surgery, Tonsillectomy Additional Past Surgical History / Comment(s): carissa mastectomy (2003) , carissa breast reconstruction., panniculectomy., Cyst on rt hand removed., lap band 2002-(band removed 04/10/18), EGD sleeve gastrectomy ., 06-24-18 ., COLD KNIFE CONE (03/07/21 Past Anesthesia/Blood Transfusion Reactions: No Reported Reaction, Family History of Problems w/ Anesthesia, Motion Sickness Additional Past Anesthesia/Blood Transfusion Reaction / Comment(s): vertigo. sister =PONV Past Psychological History: Depression Smoking Status: Current every day smoker Past Alcohol Use History: Occasional Additional Past Alcohol Use History / Comment(s): SMOKES 1 PPD OR LESS, SMOKING OFF AND ON, SMOKING FOR OVER 30 YEARS. Past Drug Use History: None Reported - Past Family History Father Family Medical History: Diabetes Mellitus, Myocardial Infarction (MD) Mother Family Medical History: CVA/TIA, Dementia, Hypertension Additional Family Medical History / Comment(s): Maternal grandmother had breast cancer. Medications and Allergies Home Medications Medication Instructions Recorded Confirmed Type Escitalopram Oxalate [Lexapro] 10 mg PO QAM 01/18/21 05/12/21 History Losartan-Hctz 50-12.5 mg [Hyzaar 1 tab PO QAM 01/18/21 05/12/21 History 50-12.5] Meclizine [Antivert] 12.5 mg PO TID PRN 01/18/21 05/12/21 History Multivitamin [Multivitamins Adult 1 each PO DAILY 01/18/21 05/12/21 History Gummies] Cyanocobalamin (Vitamin B-12) 1,000 mcg PO DAILY 03/03/21 05/12/21 History [Vitamin B-12] Ergocalciferol [Vitamin D2 (1250 1,250 mcg PO WE 03/03/21 05/12/21 History Mcg = 30514 Iu)] Acetaminophen [Tylenol Extra 1,000 mg PO DIRECTED PRN 05/12/21 05/12/21 History Strength] Alendronate Sodium 70 mg PO ARCHER 05/12/21 05/12/21 History Allergies Allergy/AdvReac Type Severity Reaction Status Date / Time No Known Allergies Allergy Verified 05/12/21 14:57 Exam Osteopathic Statement: *. No significant issues noted on an osteopathic structural exam other than those noted in the History and Physical/Consult. Vital Signs Temp Pulse Resp BP Pulse Ox 05/17/21 06:12 97.8 F 64 18 138/92 97 Intake and Output 05/16/21 05/17/21 05/17/21 22:59 06:59 14:59 Intake Total 200 Balance 200 Intake: IV 200 Other: Weight 80.5 kg Targeted physical exam is performed in this date and revenue liaison a well-nourished well-developed non female in no acute distress, breathing is noted to be nonlabored, heart has regular rate and rhythm, abdomen is soft and nontender, pelvic exam is deferred. On prior pelvic exam uterus was noted to be small and mobile, consistent with her postmenopausal status. Assessment and Plan (1) H/O malignant neoplasm of breast Current Visit: Yes Status: Acute Code(s): Z85.3 - PERSONAL HISTORY OF MALIGNANT NEOPLASM OF BREAST SNOMED Code(s): 638360413 (2) JATINDER II (cervical intraepithelial neoplasia II) Current Visit: No Status: Acute Code(s): N87.1 - MODERATE CERVICAL DYSPLASIA SNOMED Code(s): 855406990 (3) HGSIL (high grade squamous intraepithelial dysplasia) Current Visit: No Status: Acute Code(s): MRK2819 - SNOMED Code(s): 293153109
--- NOTE | 2021-05-17 09:02 | P.OP ---
Date of Procedure: 05/17/21 Preoperative Diagnosis: Persistent JATINDER-2, history of breast cancer Postoperative Diagnosis: Same Procedure(s) Performed: Robotic-assisted vaginal hysterectomy, bilateral salpingo-oophorectomy, diagnostic cystoscopy Anesthesia: LEAHA Surgeon: Milagros Saavedra Pedorthist #1: Yaz Medina Estimated Blood Loss (ml): 10 IV fluids (ml): 250 Urine output (ml): 100 Pathology: other (Uterus fallopian tubes cervix bilateral ovaries) Condition: stable Disposition: PACU Indications for Procedure: Persistent JATINDER-2 on endocervical canal specimen, despite LEEP, patient has a history of breast cancer and desires risk reducing, definitive surgery. Operative Findings: Small postmenopausal uterus is appreciated, bilateral ovaries appear grossly normal. On vaginal exam cervix appears almost flush with vaginal wall given history of LEEP. Description of Procedure: Patient was taken back to the operating suite where general anesthesia was obtained without difficulty by the anesthesia department. She was prepped and draped in the normal sterile fashion in the dorsal lithotomy position. A Taylor catheter was placed under sterile technique. A weighted speculum posterior vaginal vault, the anterior lip of the cervix was visualized grasped with a single-tooth tenaculum and dilated. Baby care uterine manipulator was then placed. At this time all inserts removed from patient's vaginal vault. Attention was then turned the patient's abdomen where partially 1 fingerbreadth above the umbilicus a small skin incision is made. Through this incision the Veress needles placed. Once the Veress needle was deemed to be in the proper position with a drop of CO2 pressure with insufflation of CO2 gas CO2 insufflation was allowed to occur. 3 L of gas were used to obtain pneumoperitoneum. At this time an 8 mm trocar and sleeve is placed through the skin incision and toward the pneumoperitoneum the above-noted findings are visualized. At this time the additional port sites are placed under direct visualization these are operative ports and the da Soledad machine. These ports are placed 10 cm lateral and 3/7 inferior midline port. In the left upper quad rant a 12 mm trocar and sleeve is placed under direct visualization. The da Soledad robot is docked in usual fashion at this time. The operative arms are now placed in the left operative arm the monopolar scissors and the left operative arm the bipolar forceps is placed. Attention turned to the patient's left infundibulopelvic ligament which was grasped coagulated distally and proximally divided. Hemostasis was appreciated throughout. This continued through the broad and toward the round which was coagulated distally approximately divided. The bladder flap from the left was then created using sharp and blunt dissection. The ascending branch the uterine artery from the left was visualized coagulated and transected, hemostasis was appreciated. Attention was then turned to the patient's right infundibulopelvic ligament which was coagulated distally and proximally divided. This continued through the broad and toward the round which was coagulated distally approximately divided. The bladder flap from the right was created using sharp and blunt dissection. The ascending branch the uterine artery was visualized coagulated transected and hemostasis was appreciated. At this time a Ray-Roseanna was introduced into the abdomen as a means to gently dissect the bladder away from the operating field. This was removed after dissection was complete. At this time the only remaining attachment was a vaginal attachment therefore a colpotomy incision was made and circumference of fashion. Hemostasis was appreciated and the uterus fallopian tubes and ovaries were delivered through the vaginal opening. The pelvis was then copiously irrigated hemostasis was appreciated once again. The vaginal cuff was closed with multiple [id number] sutures of 0 Vicryl. Once closure was complete hemostasis was appreciated. At this time all instrument removed from the patient's abdomen and the da Soledad was undocked in the usual fashion. Attention then turned the patient's Taylor catheter which was removed without difficulty, clear urine was noted in the Taylor catheter 2. The cystoscope was then performed. The cystoscope was placed through the urethra and toward the bladder was noted to be intact and a complete survey, both ureteral orifices were noted to be spilling clear yellow urine. Cystoscope was removed and the Taylor catheter was replaced. Attention then turned to the patient's abdomen where the skin incisions were closed with 4-0 Vicryl in a subarticular fashion, Steri-Strips and sterile dressings were applied. All counts were noted to be correct 2 at the end of the procedure. Patient did tolerate procedure well and was taken the recovery room awake in stable condition.
[2021-05-17 09:17] VITALS: RESP 16
[2021-05-17] MEDS: SENNOSIDES-DOCUSATE SODIUM 1 EACH TAB PO SCH ×2 (10:39→20:06)
[2021-05-17] MEDS: LACTATED RINGERS 1,000 ML IV SCH (10:39)
[2021-05-17] MEDS: ESCITALOPRAM 10 MG TAB PO SCH (11:06)
[2021-05-17] MEDS: KETOROLAC 15 MG/ML 1 ML VIAL IVP PRN ×2 (16:06→23:14)
[2021-05-18] MEDS: LACTATED RINGERS 1,000 ML IV SCH (06:32)
[2021-05-18 07:51] LABS: Basophils % (A) 0 %; Eosinophils # (A) 0.3 k/uL (0-0.7); Eosinophils % (A) 4 %; HCT 38.4 % (34.0-46.0); HGB 12.2 gm/dL (11.4-16.0); Lymphocytes # (A) 2.1 k/uL (1.0-4.8); Lymphocytes % (A) 26 %; MCH 30.5 pg (25.0-35.0); MCHC 31.9 g/dL (31.0-37.0); MCV 95.9 fL (80.0-100.0); Mean Platelet Volume 7.2; Monocytes # (A) 0.5 k/uL (0-1.0); Monocytes % (A) 6 %; Neutrophils # (A) 4.8 k/uL (1.3-7.7); Neutrophils % (A) 60 %; Platelet Count 338 k/uL (150-450); RBC 4.01 m/uL (3.80-5.40); RDW 14.3 % (11.5-15.5); WBC 7.9 k/uL (3.8-10.6)
[2021-05-18] MEDS: SENNOSIDES-DOCUSATE SODIUM 1 EACH TAB PO SCH (07:56)
[2021-05-18 08:35] VITALS: BP 138/76; PULSE 91; TEMP 98.3
--- NOTE | 2021-05-18 08:48 | P.DS ---
Providers Date of admission: 05/17/21 23:57 Expected date of discharge: 05/18/21 Attending physician: Milagros Saavedra Primary care physician: Geraldine Thakur - Discharge Diagnosis(es) (1) H/O malignant neoplasm of breast Current Visit: Yes Status: Acute (2) JATINDER II (cervical intraepithelial neoplasia II) Current Visit: No Status: Acute (3) HGSIL (high grade squamous intraepithelial dysplasia) Current Visit: No Status: Acute (4) S/P laparoscopic hysterectomy Current Visit: Yes Status: Acute Hospital Course: 60-year-old female that presented to the hospital yesterday for scheduled robotic cyst vaginal hysterectomy and bilateral salpingo-oophorectomy. Patient is a known history of breast cancer for which she's had mastectomy, patient has had persistent JATINDER-2 in the endocervical canal. Patient had a LEEP in the past, desires definitive treatment with hysterectomy given her history of breast cancer and persistent JATINDER-2. Patient presents head to the hospital for scheduled procedure, patient was taken back to the operating suite and procedure was performed without difficulty. Postoperatively patient has done well. On this postoperative day #1 she is ambulating and voiding without difficulty. She is tolerating a regular diet without nausea or vomiting. She states her pain is controlled with oral ibuprofen. She notes scant vaginal bleeding. She denies concerns. She would like discharge home. Patient Condition at Discharge: Good Plan - Discharge Summary Discharge Rx Participant: Yes New Discharge Prescriptions: No Action Meclizine [Antivert] 12.5 mg PO TID PRN PRN Reason: Vertigo Ergocalciferol [Vitamin D2 (1250 Mcg = 05333 Iu)] 1,250 mcg PO WE Cyanocobalamin (Vitamin B-12) [Vitamin B-12] 1,000 mcg PO DAILY Alendronate Sodium 70 mg PO ARCHER Losartan-Hctz 50-12.5 mg [Hyzaar 50-12.5] 1 tab PO QAM Escitalopram Oxalate [Lexapro] 10 mg PO QAM Multivitamin [Multivitamins Adult Gummies] 1 each PO DAILY Acetaminophen [Tylenol Extra Strength] 1,000 mg PO DIRECTED PRN PRN Reason: Pain Discharge Medication List Escitalopram Oxalate [Lexapro] 10 mg PO QAM 01/18/21 [History] Losartan-Hctz 50-12.5 mg [Hyzaar 50-12.5] 1 tab PO QAM 01/18/21 [History] Meclizine [Antivert] 12.5 mg PO TID PRN 01/18/21 [History] Multivitamin [Multivitamins Adult Gummies] 1 each PO DAILY 01/18/21 [History] Cyanocobalamin (Vitamin B-12) [Vitamin B-12] 1,000 mcg PO DAILY 03/03/21 [History] Ergocalciferol [Vitamin D2 (1250 Mcg = 57508 Iu)] 1,250 mcg PO WE 03/03/21 [History] Acetaminophen [Tylenol Extra Strength] 1,000 mg PO DIRECTED PRN 05/12/21 [History] Alendronate Sodium 70 mg PO ARCHER 05/12/21 [History] Follow up Appointment(s)/Referral(s): Milagros Saavedra DO [Doctor of Osteopathic Medicine] - 2 Weeks Patient Instructions/Handouts: Laparoscopic Hysterectomy (DC), Laparoscopic Hysterectomy (GEN) Activity/Diet/Wound Care/Special Instructions: Patient can expect vaginal spotting after surgery. [id number] ibuprofen 600 mg as needed for discomfort. Patient is counseled on follow-up in 2 weeks. Should she have any concerns prior to this appointment she is urged to call the office. Discharge Disposition: HOME SELF-CARE
[2021-05-18] MEDS: ESCITALOPRAM 10 MG TAB PO SCH (09:11)
== END 2021-05-18 10:24 | disposition home or self-care (01) ==
LOC: OR 05:49 → 4FBP 08:59 → OR 23:57
PROVIDERS: ADMIT Obstetrics & Gynecology Obstetrics; ATTEND Obstetrics & Gynecology Obstetrics
DX: N87.1 Moderate cervical dysplasia (principal); I10 Essential (primary) hypertension; F17.210 Nicotine dependence, cigarettes, uncomplicated; M19.90 Unspecified osteoarthritis, unspecified site; M81.0 Age-related osteoporosis without current pathological fracture; F32.9 Major depressive disorder, single episode, unspecified; Z20.822 Contact with and (suspected) exposure to COVID-19; Z85.3 Personal history of malignant neoplasm of breast; Z87.410 Personal history of cervical dysplasia; Z90.13 Acquired absence of bilateral breasts and nipples; Z98.84 Bariatric surgery status; Z98.890 Other specified postprocedural states; Z92.21 Personal history of antineoplastic chemotherapy; Z82.49 Family history of ischemic heart disease and other diseases of the circulatory system; Z80.3 Family history of malignant neoplasm of breast; Z83.3 Family history of diabetes mellitus
CPT/HCPCS: 58552; S2900; 85025; 86850; 86900; 86901; 87635; 88309

== ENCOUNTER 2021-12-25 15:58 | Emergency (ER) | payer BC ==
[2021-12-25 16:04] VITALS: TEMP 97.6
[2021-12-25] MEDS ORDERED: LIDOCAINE 1% INJ 10MG/ML (5 ML VIAL-PF) SQ ONE (16:36)
--- NOTE | 2021-12-25 16:36 | XR ---
EXAMINATION TYPE: XR foot complete LT DATE OF EXAM: 12/25/2021 COMPARISON: NONE HISTORY: Laceration TECHNIQUE: 3 views FINDINGS: I see no fracture nor dislocation. Exam limited by overlying artifact. There is plantar cleo caneal spurring. Joint spaces are normal. IMPRESSION: No fracture seen.
[2021-12-25] MEDS ORDERED: DIPH,PERTUS(ACELL)TETVAC-LF 0.5 ML VIAL IM ONE (16:37)
--- NOTE | 2021-12-25 18:04 | ED ---
Wound/Laceration HPI - General Chief Complaint: Wound/Laceration Stated Complaint: Laceration on Left Foot Time Seen by Provider: 12/25/21 16:07 Source: patient Mode of arrival: ambulatory Limitations: no limitations - History of Present Illness Initial Comments: Patient is a 61-year-old female who presents to the emergency department for evaluation of laceration. 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 Patient states she has had trouble to control the bleeding. She denies blood thinner use. Reports minimal pain. Denies numbness and tingling. Last tetanus unknown. - Related Data Home Medications Medication Instructions Recorded Confirmed Escitalopram Oxalate [Lexapro] 10 mg PO QAM 01/18/21 05/12/21 Losartan-Hctz 50-12.5 mg [Hyzaar 1 tab PO QAM 01/18/21 05/12/21 50-12.5] Meclizine [Antivert] 12.5 mg PO TID PRN 01/18/21 05/12/21 Multivitamin [Multivitamins Adult 1 each PO DAILY 01/18/21 05/12/21 Gummies] Cyanocobalamin (Vitamin B-12) 1,000 mcg PO DAILY 03/03/21 05/12/21 [Vitamin B-12] Ergocalciferol [Vitamin D2 (1250 1,250 mcg PO WE 03/03/21 05/12/21 Mcg = 60656 Iu)] Acetaminophen [Tylenol Extra 1,000 mg PO DIRECTED PRN 05/12/21 05/12/21 Strength] Alendronate Sodium 70 mg PO ARCHER 05/12/21 05/12/21 Allergies Allergy/AdvReac Type Severity Reaction Status Date / Time No Known Allergies Allergy Verified 12/25/21 16:03 Review of Systems ROS Statement: Those systems with pertinent positive or pertinent negative responses have been documented in the HPI. ROS Other: All systems not noted in ROS Statement are negative. Past Medical History Past Medical History: Cancer, Hypertension, Osteoarthritis (OA) Additional Past Medical History / Comment(s): HX BRONCHITIS, BREAST CANCER WITH SURGERY & CHEMO (2004).,ARTHRITIS WITH BACK & KNEE PAIN., GASTRIC PROLAPSE AND LAP BAND REMOVED 04/10/18., GASTRIC SLEEVE (2018).,OSTEOPOROSIS., PT STATES PRE-CANCEROUS CERVICAL CELLS. History of Any Multi-Drug Resistant Organisms: None Reported Past Surgical History: Adenoidectomy, Bariatric Surgery, Breast Surgery, Orthopedic Surgery, Tonsillectomy Additional Past Surgical History / Comment(s): carissa mastectomy (2003) , carissa breast reconstruction., panniculectomy., Cyst on rt hand removed., lap band 2002-(band removed 04/10/18), EGD sleeve gastrectomy ., 06-24-18 ., COLD KNIFE CONE (03/07/21 Past Anesthesia/Blood Transfusion Reactions: No Reported Reaction, Family History of Problems w/ Anesthesia, Motion Sickness Additional Past Anesthesia/Blood Transfusion Reaction / Comment(s): vertigo. sister =PONV Past Psychological History: Depression Smoking Status: Current every day smoker Past Alcohol Use History: Occasional Past Drug Use History: None Reported - Past Family History Father Family Medical History: Diabetes Mellitus, Myocardial Infarction ([place]) Mother Family Medical History: CVA/TIA, Dementia, Hypertension Additional Family Medical History / Comment(s): Maternal grandmother had breast cancer. General Exam Limitations: no limitations General appearance: alert, in no apparent distress Head exam: Present: atraumatic, normocephalic, normal inspection Eye exam: Present: normal appearance, PERRL, EOMI. Absent: scleral icterus, conjunctival injection, periorbital swelling Respiratory exam: Present: normal lung sounds bilaterally. Absent: respiratory distress, wheezes, rales, rhonchi, stridor Cardiovascular Exam: Present: regular rate, normal rhythm, normal heart sounds. Absent: systolic murmur, diastolic murmur, rubs, gallop, clicks Extremities exam: Present: other (5 cm wide laceration over left dorsal foot, neurovascularly intact ) Neurological exam: Present: alert, oriented X3, CN II-XII intact Psychiatric exam: Present: normal affect, normal mood Skin exam: Present: warm, dry, intact, normal color. Absent: rash Course Vital Signs 12/25/21 12/25/21 16:02 18:08 Temperature 97.6 F Pulse Rate 118 H 79 Respiratory 20 18 Rate Blood Pressure 106/67 127/94 O2 Sat by Pulse 99 100 Oximetry Procedures - Laceration Laceration #1 Consent Obtained: verbal consent Indication: laceration Site: foot (left) Size (cm): 5 Description: linear Depth: simple, single layer Anesthetic Used: lidocaine 1% Anesthesia Technique: local infiltration Pre-repair: wound explored, irrigated extensively, deep structures intact Type of Sutures: nylon Size of Sutures: 4-0 Number of Sutures: 5 Technique: simple, interrupted Patient Tolerated Procedure: well, no complications Medical Decision Making - Medical Decision Making This is a 61-year-old female who presents with laceration. Thorough history and examination were performed. There is a 5 cm wide laceration over the dorsal left foot. Neurovascularly intact. Full range of motion. X-ray ordered in triage which was negative for fracture. The wound was explored and irrigated extensively. It was approximated nicely with 5 sutures. Patient tolerated the procedure well with no complications. Tetanus updated. Wound care instruction provided in detail. Patient will be discharged with instruction to return for suture removal in 12-14 days. Return parameters discussed. Patient verbalizes understanding and is agreeable to this plan. Dr. Bay is my attending. Disposition Clinical Impression: Laceration Disposition: HOME SELF-CARE Condition: Good Instructions (If sedation given, give patient instructions): Care For Your Stitches (ED), Laceration (ED) Additional Instructions: Leave wound uncovered. Keep wound clean and dry. Please avoid socks until wound is healed. Wash with a mild soap. Take Tylenol or anti-inflammatories such as Motrin for pain. Follow-up with primary care provider in 1-2 days. Return for suture removal in 12-14 days. Report back to the emergency department if you experience new, concerning, or worsening symptoms. Is patient prescribed a controlled substance at d/c from ED?: No Referrals: Blaze Chandler MD [Primary Care Provider] - 1-2 days Time of Disposition: 18:04
[2021-12-25 18:11] VITALS: BP 127/94; PULSE 79; RESP 18
== END 2021-12-25 18:12 | disposition home or self-care (01) ==
LOC: EC 15:58
DX: S91.312A Laceration without foreign body, left foot, initial encounter (principal); I10 Essential (primary) hypertension; M19.90 Unspecified osteoarthritis, unspecified site; F32.A Depression, unspecified; F17.200 Nicotine dependence, unspecified, uncomplicated; Z79.899 Other long term (current) drug therapy; Z23 Encounter for immunization; W26.8XXA Contact with other sharp object(s), not elsewhere classified, initial encounter
CPT/HCPCS: 73630; 90715; 12002; 90471; 99283; J2001

== ENCOUNTER → 2022-11-15 | Outpatient (CLI) | payer BC ==
--- NOTE | 2022-11-15 17:45 | CTL ---
EXAMINATION TYPE: CT Low Dose Lung DATE OF EXAM ORDERED: 11/15/2022 HISTORY: Personal history nicotine dependence. Lung cancer screening CT DLP: 91.[address] CTDI: 2.4 mGy Automated exposure control for dose reduction was used. SCREENING VISIT: Initial COMPARISON: None TECHNIQUE: Low dose computed tomography scan was performed through the chest at 1 mm thick sections a nd reconstructed images in the coronal plane at [address] DIAGNOSTIC QUALITY: Satisfactory FINDINGS: LUNG NODULES: Present, detailed below: 1. There is a 1.1 cm nodule within the periphery of the right lateral upper lung field. Series 3 imag e 79 LUNGS: COPD: Severity: None Fibrosis: Severity: None Lymph nodes: None Other findings: None RIGHT PLEURAL SPACE: Effusion: None Calcification: None Thickening: None Pneumothorax: None LEFT PLEURAL SPACE: Effusion: None Calcification: None Thickening: None Pneumothorax: None HEART: Heart Size: Normal Coronary calcification: None Pericardial effusion: None OTHER FINDINGS: Upper abdomen: Small to moderate size hiatal hernia is present Bony thorax: Normal Supraclavicular region: Normal Other: Ascending thoracic aorta at the level the main pulmonary artery measures 4.5 cm. The main pul monary artery at the bifurcation measures 2.8 cm. IMPRESSION: 1. Solitary nodule right upper lobe FOLLOW UP CT CHEST RECOMMENDATION: PET CT recommended for additional workup CT LUNG RAD: Lung-Rad 4A Suspicious
== END | disposition home or self-care (01) ==
LOC: RADCTMAIN 12:09
PROVIDERS: ATTEND Family Medicine
DX: Z12.2 Encounter for screening for malignant neoplasm of respiratory organs (principal); R91.1 Solitary pulmonary nodule; F17.210 Nicotine dependence, cigarettes, uncomplicated
CPT/HCPCS: 71271

== ENCOUNTER → 2022-12-01 | Outpatient (CLI) | payer BC ==
--- NOTE | 2022-12-01 13:26 | PE ---
EXAMINATION TYPE: PET CT fusion skull to thigh DATE OF EXAM: 12/01/2022 COMPARISON: Low-dose lung screening CT November 15, 2022 HISTORY: Solitary pulmonary nodule, abnormal CT. History of right-sided breast cancer around 10 yea rs ago. TECHNIQUE: Following the intravenous administration of 9.63 mCi of F-18 FDG, whole body images are p erformed from the skull base to the midthigh. Images are reviewed on the computer in the coronal, ax ial, and sagittal planes. Reconstructed rotating images are created on independent workstation and r eviewed on the computer. A localization and attenuation correction CT is performed in conjunction w ith the PET scan. Blood glucose level equals 102 SCAN: Initial Scan FINDINGS: SKULL BASE AND NECK: No areas of abnormal hypermetabolic uptake. CHEST, MEDIASTINUM, AND HILAR REGION: Redemonstration of 1.2 cm peripheral right upper lobe nodule ax ial image 77 shows no abnormal hypermetabolic uptake. No areas of abnormal hypermetabolic uptake thro ughout the thorax. ABDOMEN AND PELVIS: Normal excretion. No hypermetabolic adrenal masses. No areas of abnormal hypermet abolic uptake. Low dense small left adrenal mass or masslike thickening favors benign etiology such a s lipid rich adenoma. OSSEOUS STRUCTURES: No areas of abnormal hypermetabolic uptake. OTHER CT: Surgical clips in the right axilla are redemonstrated. Bilateral breast implants are redemo nstrated. Surgical changes from gastric bypass procedure are again seen. A few distal colonic diverti cula. Uterus is surgically absent. IMPRESSION: No abnormal hypermetabolic uptake in the 1.1 cm peripheral right upper lobe nodule to sug gest malignancy. Advise follow-up diagnostic CT in 6 months time to reassess.
== END | disposition home or self-care (01) ==
LOC: RADPETMAIN 08:31
PROVIDERS: ATTEND Family Medicine
DX: R91.1 Solitary pulmonary nodule (principal)
CPT/HCPCS: 78815; A9552

== ENCOUNTER 2023-04-28 07:50 | Emergency (ER) | payer BC ==
[2023-04-28 08:06] VITALS: RESP 18; TEMP 98
[2023-04-28] MEDS ORDERED: KETOROLAC 15 MG/ML 1 ML VIAL IM STA (08:06)
--- NOTE | 2023-04-28 08:29 | ED ---
General Adult HPI - General Chief complaint: Extremity Injury, Lower Stated complaint: Right knee injury Time Seen by Provider: 04/28/23 07:57 Source: patient, RN notes reviewed Mode of arrival: wheelchair Limitations: no limitations - History of Present Illness Initial comments: 62-year-old female presents to the emergency department with a chief complaint of right knee pain. 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 She does report taking Tylenol prior to arrival. She denies any numbness, tingling, weakness to the extremity. She does believe that is swollen compared to the left knee. - Related Data Home Medications Medication Instructions Recorded Confirmed Escitalopram Oxalate [Lexapro] 10 mg PO QAM 01/18/21 05/12/21 Losartan-Hctz 50-12.5 mg [Hyzaar 1 tab PO QAM 01/18/21 05/12/21 50-12.5] Meclizine [Antivert] 12.5 mg PO TID PRN 01/18/21 05/12/21 Multivitamin [Multivitamins Adult 1 each PO DAILY 01/18/21 05/12/21 Gummies] Cyanocobalamin (Vitamin B-12) 1,000 mcg PO DAILY 03/03/21 05/12/21 [Vitamin B-12] Ergocalciferol [Vitamin D2 (1250 1,250 mcg PO WE 03/03/21 05/12/21 Mcg = 35176 Iu)] Acetaminophen [Tylenol Extra 1,000 mg PO DIRECTED PRN 05/12/21 05/12/21 Strength] Alendronate Sodium 70 mg PO ARCHER 05/12/21 05/12/21 Previous Rx's Medication Instructions Recorded Ibuprofen [Motrin] 800 mg PO Q8HR PRN #30 tab 04/28/23 Allergies Allergy/AdvReac Type Severity Reaction Status Date / Time No Known Allergies Allergy Verified 04/28/23 07:53 Review of Systems ROS Statement: Those systems with pertinent positive or pertinent negative responses have been documented in the HPI. ROS Other: All systems not noted in ROS Statement are negative. Past Medical History Past Medical History: Cancer, Hypertension, Osteoarthritis (OA) Additional Past Medical History / Comment(s): HX BRONCHITIS, BREAST CANCER WITH SURGERY & CHEMO (2003).,ARTHRITIS WITH BACK & KNEE PAIN., GASTRIC PROLAPSE AND LAP BAND REMOVED 04/10/18., GASTRIC SLEEVE (2018).,OSTEOPOROSIS., PT STATES PRE- CANCEROUS CERVICAL CELLS. History of Any Multi-Drug Resistant Organisms: None Reported Past Surgical History: Adenoidectomy, Bariatric Surgery, Breast Surgery, Orthopedic Surgery, Tonsillectomy Additional Past Surgical History / Comment(s): carissa mastectomy (2003) , carisas breast reconstruction., panniculectomy., Cyst on rt hand removed., lap band 2002-(band removed 04/10/18), EGD sleeve gastrectomy ., 06-24-18 ., COLD KNIFE CONE (03/07/21 Past Anesthesia/Blood Transfusion Reactions: No Reported Reaction, Family History of Problems w/ Anesthesia, Motion Sickness Additional Past Anesthesia/Blood Transfusion Reaction / Comment(s): vertigo. sister =PONV Past Psychological History: Depression Smoking Status: Current every day smoker Past Alcohol Use History: Daily Past Drug Use History: Marijuana - Past Family History Father Family Medical History: Diabetes Mellitus, Myocardial Infarction ([place]) Mother Family Medical History: CVA/TIA, Dementia, Hypertension Additional Family Medical History / Comment(s): Maternal grandmother had breast cancer. General Exam - General Exam Comments Initial Comments: General: Alert, in no acute distress Head: atraumatic normocephalic. Eyes PERRL, EOMI intact, mucous membranes moist Respiratory: Lungs clear to auscultation bilaterally Cardiovascular: Heart rate regular rate and rhythm Abdominal: Soft without guarding or rebound Extremities: Normal inspection with full range of motion and normal capillary refill, right knee with generalized edema. Generalized tenderness. Limited range of motion secondary to pain 2+ DP/PT pulses. Distal neurovascular intact. Neuroogic: alert and oriented 3, CN II-XII intact, able to ambulate with steady gait Skin: warm dry and intact with normal color Limitations: no limitations Course Vital Signs 04/28/23 04/28/23 07:53 10:24 Temperature 98 F Pulse Rate 83 80 Respiratory 18 18 Rate Blood Pressure 143/93 132/78 O2 Sat by Pulse 100 100 Oximetry Medical Decision Making - Medical Decision Making Was pt. sent in by a medical professional or institution (, PA, CT SCAN TECHNOLOGIST, urgent care, hospital, or fdc...) When possible be specific @ -[No] Did you speak to anyone other than the patient for history (EMS, parent, family, police, friend...)? What history was obtained from this source @ -[No] Did you review nursing and triage notes (agree or disagree)? Why? @ -[I reviewed and agree with nursing and triage notes] Were old charts reviewed (outside hosp., previous admission, EMS record, old EKG, old radiological studies, urgent care reports/EKG's, fdc records)? Report findings @ -[No old charts were reviewed] Differential Diagnosis (chest pain, altered mental status, abdominal pain women, abdominal pain men, vaginal bleeding, weakness, fever, dyspnea, syncope, headache, dizziness, GI bleed, back pain, seizure, CVA, palpatations, mental health, musculoskeletal)? @ -[not applicable] EKG interpreted by me (3pts min.). @ -[As above] X-rays interpreted by me (1pt min.). @ -X-ray of right knee without evidence of fracture or dislocation. There is moderate joint effusion. CT interpreted by me (1pt min.). @ -[None done] U/S interpreted by me (1pt. min.). @ -[None done] What testing was considered but not performed or refused? (CT, X-rays, U/S, labs)? Why? @ -[None] What meds were considered but not given or refused? Why? @ -[None] Did you discuss the management of the patient with other professionals (professionals i.e. , PA, CT SCAN TECHNOLOGIST, lab, RT, psych nurse, social and human services assistant, nuclear powerplant supervisor, teacher, ethics officer, case sealer)? Give summary @ -[No] Was smoking cessation discussed for >3mins.? @ -[No] Was critical care preformed (if so, how long)? @ -[No] Were there social determinants of health that impacted care today? How? (Homelessness, low income, unemployed, alcoholism, drug addiction, transportation, low edu. Level, literacy, decrease access to med. care, halfway, rehab)? @ -[No] Was there de-escalation of care discussed even if they declined (Discuss DNR or withdrawal of care, Hospice)? DNR status @ -[No] What co-morbidities impacted this encounter? (DM, HTN, Smoking, COPD, CAD, Cancer, CVA, ARF, Chemo, Hep., AIDS, mental health diagnosis, sleep apnea, morbid obesity)? @ -[None] Was patient admitted / discharged? Hospital course, mention meds given and route, prescriptions, significant lab abnormalities, going to OR and other pertinent info. @ Discharged. 62-year-old female who presents the emergency department with right knee pain. Patient had a thorough history and physical exam performed. Physical exam reveals right knee with generalized edema. Limited range of motion secondary to pain. Patient had x-rays which were negative for fracture dislocation however there is a moderate joint effusion. Patient was given Toradol with symptomatic improvement. I discussed the results in detail with the patient who verbalized understanding all questions addressed. She'll be placed in a knee immobilizer and provided crutches and crutch training. Recommend close follow-up with Dr. Davis's and, orthopedist in 3-5 days. Undiagnosed new problem with uncertain prognosis? @ -[No] Drug Therapy requiring intensive monitoring for toxicity (Heparin, Nitro, Insulin, Cardizem)? @ -[No] Were any procedures done? @ -[No] Diagnosis/symptom? @ -Right knee pain Acute, or Chronic, or Acute on Chronic? @ -Acute Uncomplicated (without systemic symptoms) or Complicated (systemic symptoms)? @ -Uncomplictaed Side effects of treatment? @ -[No] Exacerbation, Progression, or Severe Exacerbation? @ -[No] Poses a threat to life or bodily function? How? (Chest pain, [place], [place], pneumonia, PE, COPD, DKA, ARF, appy, cholecystitis, CVA, Diverticulitis, Homicidal, Suicidal, threat to staff... and all critical care pts) @ -Low likelihood Disposition Clinical Impression: Internal derangement of right knee Disposition: HOME SELF-CARE Condition: Stable Instructions (If sedation given, give patient instructions): Knee Sprain (ED) Additional Instructions: Please elevate right knee when able Please take Tylenol or Motrin for pain Please return to the nearest emergency department if symptoms worsen or persist Prescriptions: Ibuprofen [Motrin] 800 mg PO Q8HR PRN #30 tab PRN Reason: Pain Is patient prescribed a controlled substance at d/c from ED?: No Referrals: Enriqueta Fagan DO [Primary Care Provider] - 1-2 days Evan Reynoso DO [Doctor of Osteopathic Medicine] - 1-2 days Tonio Parsons DO [Doctor of Osteopathic Medicine] - 1-2 days Time of Disposition: 10:05
--- NOTE | 2023-04-28 09:50 | XR ---
EXAMINATION TYPE: XR knee complete RT DATE OF EXAM: 04/28/2023 8:26 AM CLINICAL INDICATION:Female, 62 years old with history of fall/ knee pain; [facility] COMPARISON: None. TECHNIQUE: XR knee complete RT; examined in Frontal, lateral and oblique projections. FINDINGS: No evidence of any acute osseous pathology, soft tissue swelling.There is a large joint e ffusion. Tricompartmental osteophyte formation involving the femoral condyles, tibial plateau and pat ramo. Mild joint space narrowing. IMPRESSION: 1. No acute osseous pathology. 2. Large joint effusion further evaluation with MRI is recommended for evaluation for soft tissue inj ury. 3. Mild tricompartment osteoarthrosis.
[2023-04-28] MEDS ORDERED: ACET/COD 300 MG/30 MG STARTER PACK 6 TAB BTL PO STA (10:06)
[2023-04-28 10:40] VITALS: BP 132/78; PULSE 80
== END 2023-04-28 10:25 | disposition home or self-care (01) ==
LOC: EC 07:50
DX: M23.91 Unspecified internal derangement of right knee (principal); I10 Essential (primary) hypertension; F32.A Depression, unspecified; F17.200 Nicotine dependence, unspecified, uncomplicated; F12.90 Cannabis use, unspecified, uncomplicated; Z79.899 Other long term (current) drug therapy
CPT/HCPCS: 73562; 96372; 99283; J1885

== ENCOUNTER → 2023-06-21 | Outpatient (CLI) | payer BC ==
--- NOTE | 2023-06-21 16:29 | CTL ---
EXAMINATION TYPE: CT Low Dose Lung DATE OF EXAM ORDERED: 06/21/2023 HISTORY: Current smoker. Lung cancer screening CT DLP: 115.[address] CTDI: 3.5 mGy Automated exposure control for dose reduction was used. SCREENING VISIT: Subsequent COMPARISON: 11/15/2022 TECHNIQUE: Low dose computed tomography scan was performed through the chest at 1 mm thick sections a nd reconstructed images in the coronal plane at [address] DIAGNOSTIC QUALITY: Satisfactory FINDINGS: LUNG NODULES: Present, detailed below: 1. There is a 1.1 x 1.4 cm nodule in the periphery of the right lung, series 4 image 77. This is stab le from comparison. LUNGS: COPD: Severity: None Fibrosis: Severity: None Lymph nodes: None Other findings: None RIGHT PLEURAL SPACE: Effusion: None Calcification: None Thickening: None Pneumothorax: None LEFT PLEURAL SPACE: Effusion: None Calcification: None Thickening: None Pneumothorax: None HEART: Heart Size: Normal Coronary calcification: Mild Pericardial effusion: None OTHER FINDINGS: Upper abdomen: There is a small hiatal hernia present. Bony thorax: Normal Supraclavicular region: Normal Other: Ascending thoracic aorta at the level the main pulmonary artery measures 4.2 cm. The main pul monary artery at the bifurcation measures 2.7 cm. IMPRESSION: 1. Stable nodule right upper peripheral lung. FOLLOW UP CT CHEST RECOMMENDATION: Follow-up low-dose CT chest [address] LUNG RAD: Lung-Rad 3 Probably Benign
== END | disposition home or self-care (01) ==
LOC: RADCTMAIN 14:53
PROVIDERS: ATTEND Family Medicine
DX: Z12.2 Encounter for screening for malignant neoplasm of respiratory organs (principal); F17.210 Nicotine dependence, cigarettes, uncomplicated; R91.1 Solitary pulmonary nodule
CPT/HCPCS: 71271

== ENCOUNTER → 2024-04-10 | Outpatient (CLI) | payer BC ==
--- NOTE | 2024-04-10 11:35 | CTL ---
EXAMINATION TYPE: CT Low Dose Lung DATE OF EXAM ORDERED: 04/10/2024 History: Lung cancer screening CT DLP: [address] CTDI: 2.41 mGy Automated exposure control for dose reduction was used. Comparison: 06/21/2023 TECHNIQUE: Low dose computed tomography scan was performed through the chest at 1 mm thick sections a nd reconstructed images in multiple planes at 1 mm and [address] DIAGNOSTIC QUALITY: Satisfactory FINDINGS: There is a stable 1.2 cm nodule in the right upper lobe laterally. No new or suspicious nodules seen. There is no airspace consolidation or abnormal interstitial density There is no pleural effusion, pleural thickening or pneumothorax. There is a thoracic aortic aneurysm which has increased in size from 4.2 to 4.4 cm in size. There is no mediastinal, hilar or axillary adenopathy. Rescanning through the upper abdomen reveals a small hiatal hernia and postsurgical changes at the GE junction. There are bilateral breast implants. No focal osseous abnormalities are seen. IMPRESSION: 1. Lung RADS category 2 benign. Stable 1.2 mm nodule right upper lobe. Continue routine screening at yearly intervals. 2. Thoracic aortic aneurysm which has grown slightly in the interval from 4.2 to 4.4 cm. 3. No acute cardiopulmonary disease [facility], Workstation: SUDHA 04/10/2024 11:33 AM
== END | disposition home or self-care (01) ==
LOC: RADCTMAIN 11:01
PROVIDERS: ATTEND Family Medicine
DX: Z12.2 Encounter for screening for malignant neoplasm of respiratory organs (principal); R91.1 Solitary pulmonary nodule; I71.20 Thoracic aortic aneurysm, without rupture, unspecified; Z87.891 Personal history of nicotine dependence
CPT/HCPCS: 71271